=== PATIENT | female | born 1940 | race Caucasian/White ===

== ENCOUNTER 2017-03-18 07:01 | Inpatient (IN) ==
[2017-03-18] MEDS ORDERED: ONDANSETRON ODT 4 MG TABLET PO STA (07:25)
--- NOTE | 2017-03-18 07:28 | Emergency Department Note ---
Trace De La Fuente Brittany, am scribing for, and in the presence of, Matt Lipscomb MD 07:16. Deisi De La Fuente James D, MD, personally performed the services described in this documentation, ascribed by Mei Woodward in my presence, and it is both accurate and complete 727 . Arrival - Arrival Chief Complaint: Upper Respiratory Stated Complaint: trouble breathing/cough,congestion ED Nursing Triage Note: c/o coughing, congestion, wheezing, and weakness. Patient was seen last week at the doctors office and has been treated for pneumonia. Patient states she just don't feel any better. Mode of Arrival: Ambulatory Limitations: Language Barrier (patient does not speak azeri, history is provided by her daughter) Source: Family, RN Notes Reviewed - History of Present Illness HPI Narrative: Patient is a 76 y/o female presenting to the ED with c/o cough, congestion, wheezing, and weakness that began a week and a half ago. History is obtained from family secondary to patient being a non-Ukrainian speaker. Family reports that she was seen by her primary care provider Dr. Peña last week and was diagnosed and treated for Pneumonia with Rocephin shot and abx. PMHx of CHF, HTN , and DM. Proof Carrier is Dr. Servin. PCP is Dr. Peña. No fevers, did have some chest pain, but attributed to excessive coughing. Has had some abdominal pain described as as burning sensation. No further complaints. Onset (ago): week(s) (1 week and a half) Consistency: constant Allergies/Adverse Reactions: Allergies Allergy/AdvReac Type Severity Reaction Status Date / Time Sulfa (Sulfonamide Allergy Severe HIVES Verified 03/18/17 07:11 Antibiotics) Home Medications: Home Medications Medication Instructions Recorded Confirmed Type Albuterol Sulfate [Proair HFA] 90 mcg INH DIRECTED PRN 02/23/17 02/23/17 History Carvedilol [Coreg] 12.5 mg PO BID 02/23/17 02/23/17 History Fluticasone/Salmeterol [Advair Hfa 12 gm INH DAILY 02/23/17 02/23/17 History 115-21 Mcg Inhaler] Insulin Glargine,Hum.rec.anlog 35 units SUBCUT BEDTIME 02/23/17 02/23/17 History [Lantus SoloStar] Levothyroxine Tab [Synthroid Tab] 75 mcg PO DAILY 02/23/17 02/23/17 History Lovastatin [Altoprev] 40 mg PO DAILY 02/23/17 02/23/17 History Montelukast Tab [Singulair Tab] 10 mg PO DAILY 02/23/17 02/23/17 History Nitroglycerin [Nitroglycerin SL 0.3 mg PO DIRECTED PRN 02/23/17 02/23/17 History Tab] Sitagliptin Phos/Metformin HCl 1 tablet PO DAILY 02/23/17 02/23/17 History [Janumet Xr 100-1,000 mg Tablet] amLODIPine [Norvasc] 10 mg PO DAILY 02/23/17 02/23/17 History glipiZIDE [Glipizide] 10 mg PO DAILY 02/23/17 02/23/17 History hydrOXYzine HCl [Hydroxyzine HCl] 25 mg PO DIRECTED 02/23/17 02/23/17 History Review of System - Review of System 12 point system: reviewed and no additional remarkable complaints except as stated - Review of System Constitutional: Present: weakness Respiratory: Present: cough, wheezing, other (congestion) Cardiovascular: Present: chest pain Gastrointestinal: Present: abdominal pain Medical,Surgical,& Family Hx - Medical History Cardio: History of: CAD, Hypertension, [place] (X 2) Psychological: History of: Depression Neurology: No history of: Seizures HEENT: History of: Dental Problems Endocrine: History of: Diabetes Mellitus (IDDM), Diabetes Mellitus (NIDDM), Thyroid Disorder Respiratory: History of: Asthma Genitourinary: History of: Bladder Problem (BLADDER SLING) Musculoskeletal: History of: Back/Neck Problems, Herniated Disk, Osteoporosis - Surgical History Cardiac Surgeries: Sugical HX of: Cardiac Catheterization (STENT) Abdominal Surgeries: Surgical HX of: Abdominal Surgery, Appendectomy Reproductive Surgeries: Surgical HX of;: Gynecologic Surgery (1 OVARY REMOVED), Tubal Ligation - Social History Smoking Status: Never smoker Frequency of Alcohol Use: None Type of Drug Use: None Exam Physical Examination: GENERAL: This is a well-nourished, well-developed female in no apparent distress. VITAL SIGNS: Reviewed. HEENT: Head is normocephalic and atraumatic. Pupils are equally round and reactive to light. Extraocular movement are intact. Oropharynx is benign with moist mucous membranes. NECK: Neck is soft and supple without tenderness. There are no masses. There is no lymphadenopathy. LUNGS: Wheezing throughout bilateral lung howell. Prolonged expiration. Chest rises symmetrically. There is no chest wall tenderness. CV: Heart is regular rate and rhythm without murmurs, rubs, or gallops. ABDOMEN: Abdomen is soft, non-tender to palpation. There are no abnormal masses palpated. There is no organomegaly. Bowel sounds are present and active. SKIN: Skin is warm and dry. No rash. EXTREMITIES: Patient has full range of motion without tenderness. There is no pedal edema. NEUROLOGIC: Awake, alert, and oriented x4. Cranial nerves II through XII are grossly intact. There are no motorsensory deficits. PSYCHIATRIC: Normal affect. Normal mood. Vital Signs: Vital Signs Temperature 98.4 F 03/18/17 07:08 Pulse Rate 74 03/18/17 08:15 Respiratory Rate 16 03/18/17 08:15 Blood Pressure 113/66 03/18/17 08:15 O2 Sat by Pulse Oximetry 100 03/18/17 08:15 Course - Consultations Consultation #1: Discussed with hospitalist. Patient will be admitted to their service Time: 08:58 Results - Labs CBC & BMP: 03/18/17 07:29 03/18/17 07:29 Lab Results: I have reviewed the patients labs Labs: Laboratory Tests 03/18/17 03/18/17 07:29 07:29 Troponin I < 0.015 B-Natriuretic Peptide 28 - EKG EKG results: interpreted by ERMD - Diagnostic Findings Procedure: Chest x-ray: image reviewed by me (Old median sternotomy, no pleural effusions, no cardiomegaly, no infiltrates.) Disposition Clinical Impression: Dyspnea, Acute bronchitis with bronchospasm Case discussed with: patient, patient's family Disposition: Still a Patient
[2017-03-18] MEDS ORDERED: ALBUTEROL 2.5 MG/3 ML NEB RESP TX SCH (07:30)
[2017-03-18] MEDS ORDERED: ONDANSETRON ODT 4 MG TABLET PO ONE (07:33)
[2017-03-18 07:38] LABS: Basophils % 0.5 % (0.0-0.8); Eosinophils # 0.9 10*3/uL (0.0-0.87); Eosinophils % 13.7 % (0.00-10.9); Hematocrit 37.6 VOL% (35.7-47.0); Hemoglobin 13.3 GM/DL (12.0-16.0); Immature Granulocytes % 0.5 %; Immature Granulocytes Absolute 0.03 #; Lymphocytes % 31.1 % (21.3-54.2); Mean Corpuscular HGB Conc 35.4 GM/DL (32-36); Mean Corpuscular Hemoglobin 31 PG (27-34); Mean Corpuscular Volume 86.6 FL (87-102); Mean Platelet Volume 9.7 FL (9.6-12.0); Monocytes # 0.4 10*3/uL (0.11-0.8); Monocytes % 5.9 % (1.7-12.7); Neutrophils # 3.2 10*3/uL (1.4-7.4); Neutrophils % 48.3 % (38.7-73.9); Platelet Count 195 T/CUMM (130-400); Red Blood Count 4.34 MC/CUMM (3.8-5.5); Red Cell Distribution Width 12.9 % (9.3-17.3); White Blood Count 6.6 T/CUMM (4-12)
[2017-03-18 07:46] LABS: PT Patient Result 10.2 SECS; Partial Thromboplastin Time 26.4 SECS (0-40)
--- NOTE | 2017-03-18 07:59 | XRay Report ---
History: Cough Date: 03/18/2017 Study: Chest x-ray PA and lateral Comparison exam: No previous currently available The cardiac silhouette is nonenlarged. The mediastinal contours are unremarkable in this patient status post prior median sternotomy. There is mild aortic arch calcification. The pulmonary vasculature is not engorged. There is no pleural effusion. The lungs are generally clear without confluent infiltrate. There is metallic density stent overlying the left lung apex/thoracic inlet, possibly within the left vertebral artery. There is osteopenia and mild thoracic spondylosis. Impression: No acute cardiopulmonary process PROCEDURE INTERPRETED AT [facility] DEPARTMENT OF RADIOLOGY Final Report Signed by: Dr. Gillian Vegas
[2017-03-18 08:17] LABS: Alanine Aminotransferase 17 U/L (13-56); Albumin 3.9 G/DL (3.4-5.0); Alkaline Phosphatase 71 U/L (45-117); Aspartate Amino Transferase 12 U/L (0-37); Band Neutrophils 9 % (0-10); Bilirubin,Total < 0.39 MG/DL (0.2-1.0); Calcium 9.9 MG/DL (8.5-10.1); Eosinophils 12 % (0-10); Lymphocytes 31 % (20-55); Segmented Neutrophils 44 % (50-85); Total Cells Counted 100; Total Protein 6.8 G/DL (6.4-8.3)
[2017-03-18 08:18] LABS: Blood Urea Nitrogen 15 MG/DL (7-18); Glucose 194 MG/DL (74-106); Osmolality,Calculated 273.2 MOS/KG (273-304); Potassium 4.2 MMOL/L (3.5-5.1); Sodium 134 MMOL/L (136-145); Troponin I Only < 0.015 NG/ML (0.00-0.045)
[2017-03-18 08:59] LABS: Free T4 (Free Thyroxine) 1.37 NG/DL (0.76-1.46); Thyroid Stimulating Hormone 10.8 uIU/ml (0.358-3.74)
[2017-03-18] MEDS ORDERED: ALBUTEROL 2.5 MG/3 ML NEB RESP TX PRN (09:25)
[2017-03-18] MEDS ORDERED: GLUCAGON 1 MG VIAL IM PRN (09:26)
[2017-03-18] MEDS ORDERED: DEXTROSE 50% 25 GM/50 ML VIAL IV PRN (09:26)
[2017-03-18] MEDS ORDERED: INFLUENZA VIRUS VACCINE 0.5 ML SYRINGE IM ONE (10:23)
--- NOTE | 2017-03-18 11:27 | CT Report ---
History: Dyspnea Date: 03/18/2017 Study: CT chest with IV contrast with pulmonary embolus technique Comparison exam: No previous chest CT available Spiral CT sections were obtained through the lungs following the IV administration of 80 mL of Omnipaque 350 without immediate complication. Multiplanar reconstruction images are also evaluated. There is no discrete filling defect within the pulmonary arterial tree to suggest acute pulmonary embolic disease. There is no thoracic aortic aneurysm or dissection. The patient is status post prior median sternotomy. There is moderate coronary artery calcification involving left anterior descending and left main coronary arteries. There is no pleural or pericardial effusion. There is no gaviota lymphadenopathy by short axis diameter criteria. There is a 9.8 mm short axis diameter right paratracheal node. There is an 8 mm partially calcified granuloma in the right upper lobe anteriorly. There is mild strandy subsegmental atelectasis in the lung bases. There is some occasional focal opacification of subsegmental and segmental bronchi in the lower lobes. This could be related to mucous plugging. There is no acute abnormality noted in the partially visualized upper abdomen where seen. Impression: No evidence of acute pulmonary embolic disease Occasional focal opacification of segmental and subsegmental lower lobe bronchi which could represent changes of mucous plugging Mild subsegmental atelectasis in the lung bases Coronary artery disease The CT exam was performed using one or more of the following dose reduction techniques: Automated exposure control, adjustment of the mA and/or kV according to patient size, or use of iterative reconstruction technique. PROCEDURE INTERPRETED AT [facility] DEPARTMENT OF RADIOLOGY Final Report Signed by: Dr. Gillian Vegas
[2017-03-18] MEDS: INSULIN REGULAR 100 UNIT/ML SUBCUT SCH ×3 (11:35→20:47)
[2017-03-18] MEDS: methylPREDNISolone SOD SUC 40 MG/1 ML VIAL IV SCH ×2 (11:35→20:46)
--- NOTE | 2017-03-18 13:20 | Pulmonology Consult Note ---
Assessment and Plan (1) History of coronary artery disease Status: Acute Assessment and plan: The patient has had previous bypass surgery but is not having angina now. She has no signs of heart failure. Current Visit: Yes (2) Diabetes Status: Acute Assessment and plan: Her glucose is 194. Her glucoses will be monitored. Current Visit: Yes (3) Hypertension Status: Acute Assessment and plan: Her blood pressure and heart rate appear under control. Current Visit: Yes (4) Acute bronchitis with bronchospasm Status: Acute Assessment and plan: Patient comes in with asthmatic bronchitis. She is reasonably stable. She should clear with steroids antibiotics and bronchodilator therapy. Current Visit: Yes History of Present Illness Chief complaint: Cough and shortness of breath History of present illness: Ms. Howard is a 76 year old female that came in today with increasing coughing and wheezing. She does not speak Divehi but her family is with her. They say that last week she started having some cough and congestion and went to see her LMD. She was given a Rocephin injection and some ampicillin. She was also given cough medicine. She continues to cough and wheeze and is not cleared up very well. She only has mild shortness of breath. Because she continued to have problems she came in for treatment. She was a very light smoker years ago. There is a question that she may have had some asthma. She does use an albuterol inhaler on an as needed basis. This past week she was using Advair regularly. She has only very minimal shortness of breath. She has had bypass surgery in the past. Home Medications Medication Instructions Recorded Confirmed Type Albuterol Sulfate [Proair HFA] 2 puffs INH Q4H PRN 02/23/17 03/18/17 History Carvedilol [Coreg] 12.5 mg PO BID 02/23/17 03/18/17 History Fluticasone/Salmeterol [Advair Hfa 1 puff INH BID 02/23/17 03/18/17 History 115-21 Mcg Inhaler] Insulin Glargine,Hum.rec.anlog 28 units SUBCUT QAM 02/23/17 03/18/17 History [Lantus SoloStar] Levothyroxine Tab [Synthroid Tab] 75 mcg PO DAILY@0500 02/23/17 03/18/17 History Lovastatin [Altoprev] 40 mg PO DAILY W/SUPPER 02/23/17 03/18/17 History Montelukast Tab [Singulair Tab] 10 mg PO BEDTIME 02/23/17 03/18/17 History Sitagliptin Phos/Metformin HCl 1 tablet PO BEDTIME 02/23/17 03/18/17 History [Janumet Xr 100-1,000 mg Tablet] amLODIPine [Norvasc] 10 mg PO QAM 02/23/17 03/18/17 History glipiZIDE [Glipizide] 10 mg PO BIDAC 02/23/17 03/18/17 History hydrOXYzine HCl [Hydroxyzine HCl] 25 mg PO BEDTIME PRN 02/23/17 03/18/17 History Albuterol Sulfate [Albuterol Neb] 3 ml INH Q6H PRN 03/18/17 03/18/17 History Amoxicillin/Potassium Clav [Amox 1 each PO BID 03/18/17 03/18/17 History Tr-K Clv 500-125 mg Tab] Aspirin EC Tab 81 mg PO BEDTIME 03/18/17 03/18/17 History Isosorbide Dinitrate [Isordil] 20 mg PO BID 03/18/17 03/18/17 History Losartan [Cozaar] 50 mg PO QAM 03/18/17 03/18/17 History Nitroglycerin Sl Tab [Nitrostat] 0.4 mg SL Q5M PRN 03/18/17 03/18/17 History Promethazine HCl/Codeine 5 ml PO Q12H PRN 03/18/17 03/18/17 History [Promethazine-Codeine Syrup] Allergies Allergy/AdvReac Type Severity Reaction Status Date / Time Sulfa (Sulfonamide Allergy Severe HIVES Verified 03/18/17 07:11 Antibiotics) - Constitutional Constitutional: Present: fatigue. Absent: chills, fever(s), weight loss - EENT Eyes: Absent: loss of vision Ears: Absent: decreased hearing Nose, mouth and throat: Absent: dysphagia, headache(s), hoarseness, sinus pressure - Cardiovascular Cardiovascular: Present: chest pain at rest, dyspnea on exertion. Absent: edema , orthopnea, palpitations - Respiratory Respiratory: Present: cough, wheezing, change in phlegm color. Absent: hemoptysis - Gastrointestinal Gastrointestinal: Absent: abdominal pain, change in bowel habits, dysphagia, nausea, vomiting - Genitourinary Genitourinary: Absent: dysuria, hematuria, urinary frequency - Musculoskeletal Musculoskeletal: Absent: arthralgias, myalgias - Neurological Neurological: Absent: abnormal speech, focal weakness, paresthesias - Psychiatric Psychiatric: Absent: anxiety Exam (Pulmonay) H&P - Constitutional Vitals: Period Temp Pulse Resp BP Sys/Schaffer Pulse Ox Last 24 Hr 96.5 F-98.4 F 61-80 15-22 113-184/57-99 95-100 General appearance: normal weight, no acute distress (Patient does have a harsh cough but she is in no distress.) - Head Head exam: Present: normal inspection, normocephalic - Eye Eye exam: Present: EOMI. Absent: scleral icterus Pupils: Present: EVELINE - ENT ENT exam: Present: other (No sinus tenderness) - Neck Neck exam: Absent: lymphadenopathy, thyromegaly - Respiratory Respiratory exam: Present: rhonchi, wheezes. Absent: accessory muscle use, prolonged expiratory phase - Cardiovascular Cardiovascular exam: Present: regular rate and rhythm. Absent: gallop, JVD, systolic murmur - GI/Abdominal GI/Abdominal exam: Present: normal bowel sounds, soft. Absent: distended, organomegaly, tenderness - Extremities Exam Extremities exam: Absent: calf tenderness, edema - Neurological Exam Neurological exam: Present: alert, oriented X3, CN II-XII intact - Psychiatric Psychiatric exam: Present: normal affect, normal mood - Skin Skin exam: Present: warm, dry Medical,Surgical,& Family Hx - Medical History Cardio: History of: CAD, Hypertension, [place] (X 2) Psychological: History of: Depression Neurology: No history of: Seizures HEENT: History of: Dental Problems Endocrine: History of: Diabetes Mellitus (IDDM), Diabetes Mellitus (NIDDM), Thyroid Disorder Respiratory: History of: Asthma Genitourinary: History of: Bladder Problem (BLADDER SLING) Musculoskeletal: History of: Back/Neck Problems, Herniated Disk, Osteoporosis - Surgical History Cardiac Surgeries: Sugical HX of: Cardiac Catheterization (STENT), Cardiac Surgery (She has had bypass surgery) Abdominal Surgeries: Surgical HX of: Abdominal Surgery, Appendectomy Reproductive Surgeries: Surgical HX of;: Gynecologic Surgery (1 OVARY REMOVED), Tubal Ligation - Social History Smoking Status: Former smoker Frequency of Alcohol Use: None Type of Drug Use: None Results - Labs CBC & BMP: 03/18/17 07:29 03/18/17 07:29 - Diagnostic Findings Procedure: Chest x-ray: image reviewed by me, report reviewed by me (Chest x- ray looks unremarkable), CT - chest: image reviewed by me, report reviewed by me (She has minimal infiltrates in the bases.) Specialty Discharge - Follow Up or Referrals
--- NOTE | 2017-03-18 13:40 | Hospitalist History & Physical ---
Assessment and Plan (1) Acute bronchitis with bronchospasm Status: Acute Assessment and plan: The patient had audible wheezes upon auscultation at the time of presentation. Prolonged inhaled bronchodilator treatments were given in the ED. We will initiate empiric antibiotic coverage, inhaled bronchodilators, and intravenous corticosteroids. Due to the severity of the patient's presenting symptoms, a pulmonary consultation has been requested. Current Visit: Yes (2) Diabetes Status: Acute Assessment and plan: Hemoglobin A1c was noted at 8.6. We will place all oral hypoglycemic agents on hold and start Accu-Cheks with sliding scale coverage. Current Visit: Yes (3) History of coronary artery disease Status: Acute Assessment and plan: Cardiology consultation has been requested. Current Visit: Yes History of Present Illness Chief complaint: Shortness of breath History of present illness: This is a chronically ill 76-year-old female that presented to the ED at [facility] this morning for the evaluation of shortness of breath. Patient has a medical history significant for congestive heart failure, hypertension, diabetes mellitus, chronic obstructive pulmonary disease , myocardial infarction, depression, hypothyroidism, asthma, osteoporosis, and chronic neck and back pain. Patient has a surgical history significant for cardiac catheterization with stent placement, appendectomy, partial hysterectomy , and tubal ligation. The patient reported the onset of symptoms 1-1/2 weeks prior to presentation. Her daughter who was present at bedside service historian. She reported that the patient had a gradual onset of shortness of breath and cold-like symptoms. She presented to her primary care physician Dr. Murguia on last week. During that clinical encounter, the patient was diagnosed with pneumonia, given a Rocephin injection, and sent home on oral antibiotics. The daughter reports that the patient's symptoms fail to improve despite medical intervention. Her symptoms became severe on this morning prompting her to transport her to the ED at [facility] for further evaluation. The patient was assessed at the time of ED presentation. Labs were obtained which were significant for sodium 134, glucose 104, hemoglobin A1c 8.6, and TSH 10.800. Chest x-ray was essentially unremarkable for any acute cardiopulmonary process. CT chest was negative for any evidence of acute pulmonary embolic disease. After brief discussion with both Dr. Lipscomb and Dr. Zepeda, the patient will be admitted to the hospitalist service for continuation of care. Due to the severity of the patient's presenting symptoms a cardiology and pulmonary consultations have been requested. Home medications have been reviewed and reconciled. CODE STATUS discussed; patient is a FULL CODE. Home Medications Medication Instructions Recorded Confirmed Type Albuterol Sulfate [Proair HFA] 2 puffs INH Q4H PRN 02/23/17 03/18/17 History Carvedilol [Coreg] 12.5 mg PO BID 02/23/17 03/18/17 History Fluticasone/Salmeterol [Advair Hfa 1 puff INH BID 02/23/17 03/18/17 History 115-21 Mcg Inhaler] Insulin Glargine,Hum.rec.anlog 28 units SUBCUT QAM 02/23/17 03/18/17 History [Lantus SoloStar] Levothyroxine Tab [Synthroid Tab] 75 mcg PO DAILY@0500 02/23/17 03/18/17 History Lovastatin [Altoprev] 40 mg PO DAILY W/SUPPER 02/23/17 03/18/17 History Montelukast Tab [Singulair Tab] 10 mg PO BEDTIME 02/23/17 03/18/17 History Sitagliptin Phos/Metformin HCl 1 tablet PO BEDTIME 02/23/17 03/18/17 History [Janumet Xr 100-1,000 mg Tablet] amLODIPine [Norvasc] 10 mg PO QAM 02/23/17 03/18/17 History glipiZIDE [Glipizide] 10 mg PO BIDAC 02/23/17 03/18/17 History hydrOXYzine HCl [Hydroxyzine HCl] 25 mg PO BEDTIME PRN 02/23/17 03/18/17 History Albuterol Sulfate [Albuterol Neb] 3 ml INH Q6H PRN 03/18/17 03/18/17 History Amoxicillin/Potassium Clav [Amox 1 each PO BID 03/18/17 03/18/17 History Tr-K Clv 500-125 mg Tab] Aspirin EC Tab 81 mg PO BEDTIME 03/18/17 03/18/17 History Isosorbide Dinitrate [Isordil] 20 mg PO BID 03/18/17 03/18/17 History Losartan [Cozaar] 50 mg PO QAM 03/18/17 03/18/17 History Nitroglycerin Sl Tab [Nitrostat] 0.4 mg SL Q5M PRN 03/18/17 03/18/17 History Promethazine HCl/Codeine 5 ml PO Q12H PRN 03/18/17 03/18/17 History [Promethazine-Codeine Syrup] Allergies Allergy/AdvReac Type Severity Reaction Status Date / Time Sulfa (Sulfonamide Allergy Severe HIVES Verified 03/18/17 07:11 Antibiotics) Medical,Surgical,& Family Hx - Medical History Cardio: History of: CAD, Hypertension, [place] (X 2) Psychological: History of: Depression Neurology: No history of: Seizures HEENT: History of: Dental Problems Endocrine: History of: Diabetes Mellitus (IDDM), Diabetes Mellitus (NIDDM), Thyroid Disorder Respiratory: History of: Asthma Genitourinary: History of: Bladder Problem (BLADDER SLING) Musculoskeletal: History of: Back/Neck Problems, Herniated Disk, Osteoporosis - Surgical History Cardiac Surgeries: Sugical HX of: Cardiac Catheterization (STENT), Cardiac Surgery (She has had bypass surgery) Abdominal Surgeries: Surgical HX of: Abdominal Surgery, Appendectomy Reproductive Surgeries: Surgical HX of;: Gynecologic Surgery (1 OVARY REMOVED), Tubal Ligation - Family History Family History: Reports;: Family Cancer, Family Diabetes, Family Heart Disease, Family Hypertension - Social History Smoking Status: Former smoker Have you smoked in the last 12 months: No Frequency of Alcohol Use: None Type of Drug Use: None Marital Status: Lives With:: Children Functional capacity: uses cane/walker 12 point system: reviewed and no additional remarkable complaints except as stated Exam - Constitutional Vitals: Period Temp Pulse Resp BP Sys/Schaffer Pulse Ox Last 24 Hr 96.5 F-98.4 F 61-80 15-22 113-184/57-99 95-100 General appearance: normal weight, mild distress - Head Head exam: Present: normal inspection, normocephalic, atraumatic - Eye Eye exam: Present: EOMI. Absent: conjunctival injection Pupils: Present: EVELINE, normal accommodation - ENT ENT exam: Present: normal exam, normal external ear exam, normal oropharynx - Neck Neck exam: Present: normal inspection. Absent: lymphadenopathy, meningismus, thyromegaly - Respiratory Respiratory exam: Present: wheezes - Cardiovascular Cardiovascular exam: Present: regular rate and rhythm. Absent: carotid bruit, diastolic murmur, gallop, rubs, systolic murmur - GI/Abdominal GI/Abdominal exam: Present: normal bowel sounds, soft - Extremities Exam Extremities exam: Present: normal inspection, normal capillary refill, full ROM. Absent: edema - Back Exam Back exam: Present: normal inspection - Neurological Exam Neurological exam: Present: alert, oriented X3, CN II-XII intact - Psychiatric Psychiatric exam: Present: normal affect, normal mood - Skin Skin exam: Present: normal color, warm, dry Results - Labs CBC & BMP: 03/18/17 07:29 03/18/17 07:29 Lab Results: I have reviewed the past 24 hour labs
[2017-03-18] MEDS: DOXYCYCLINE HYCLATE INJ 100 MG in SODIUM CHLORIDE 0.9% 100 ML IV SCH (14:29)
[2017-03-18] MEDS: ALBUTEROL/IPRATROPIUM 3 ML NEB RESP TX SCH ×2 (14:31→20:00)
--- NOTE | 2017-03-18 16:39 | Cardiology Consult Note ---
<Margaret Lopez E - Last Filed: 03/18/17 16:37> Assessment and Plan - Time spent with patient Time spent with patient: Greater than 30 minutes (1) Dyslipidemia Status: Chronic Assessment and plan: SEE PLAN OF CARE LISTED BELOW Current Visit: Yes (2) PVD (peripheral vascular disease) Status: Chronic Assessment and plan: SEE PLAN OF CARE LISTED BELOW Current Visit: Yes (3) COPD (chronic obstructive pulmonary disease) Status: Chronic Assessment and plan: SEE PLAN OF CARE LISTED BELOW Current Visit: Yes (4) Dyspnea Status: Acute Assessment and plan: SEE PLAN OF CARE LISTED BELOW Current Visit: Yes (5) Acute bronchitis with bronchospasm Status: Acute Assessment and plan: SEE PLAN OF CARE LISTED BELOW Current Visit: Yes (6) History of coronary artery disease Status: Chronic Assessment and plan: SEE PLAN OF CARE LISTED BELOW Current Visit: Yes (7) Diabetes Status: Chronic Assessment and plan: SEE PLAN OF CARE LISTED BELOW Current Visit: Yes (8) Hypertension Status: Chronic Assessment and plan: SEE PLAN OF CARE LISTED BELOW Current Visit: Yes History of Present Illness - Data of Consult Patient: known to practice within the last 3 years Consult date: 03/18/17 Requesting Physician: Nereida Zepeda - Consult Narrative Reason for consult: Shortness of breath, known CAD History of present illness: [employer] HE[employer] SANITARIAN: DR. SERVIN Ms. Howard, 76HF, with risk factors significant for: Known CAD (status post CABG twice), hypertension, dyslipidemia, diabetes, PVD, sedentary lifestyle and age. Patient has a history of 2 vessel CABG 1995 in [place] followed by PCI with 2 stents in [place], [place] in 1998. 2008 in [facility] emergent 2 vessel CABG. She has HUNTER to LAD, SVG to right PDA. The second surgery was a redo of the same vessels. Patient has required PCI and stenting of her bilateral lower extremities in the past. Myocardial perfusion study December 20, 2016: Abnormal perfusion study consistent with prior infarction. (See report). Results were discussed with patient in clinic. Echocardiogram December: EF 50%, grade 1 diastolic dysfunction, moderate concentric LVH. Mild mitral regurgitation, mild to moderate tricuspid regurgitation, PAP 32 mmHg. Admitted March 18, 2017 with complaints of worsening cough, wheezing and shortness of breath. She has history of COPD, asthma. She failed outpatient treatment with antibiotics. Because of her worsening symptoms, she felt as if she should be evaluated in the emergency department. [place] and treated with antibiotics, steroids and bronchodilators. Coreg was discontinued due to wheezing and switched to Bystolic. She just completed a respiratory treatment and is breathing much better at this time. She denies chest pain, heaviness or tightness. Overall, patient reports she is fairly active and can perform her activities without complaints of angina. She is not in congestive heart failure (proBNP 28). Troponin is negative. CT chest reveals possible mucous plugging. From a cardiac standpoint, she appears to be doing well. Agree with changing of Coreg to Bystolic to see if this will improve her wheezing. Blood pressure appears to be well controlled, she is in a normal sinus rhythm. From a cardiac standpoint, we will sign off. She will keep her current follow-up appointment. IMPRESSION/PLAN: 1. SHORTNESS OF BREATH -multifactorial to include COPD exacerbation, upper respiratory infection, bronchitis. She IS NOT in congestive heart failure. Continue aggressive pulmonary toilet. 2. KNOWN CAD - complaints of angina at this time. Will add aspirin and Lovenox. 3. HYPERTENSION - adequately controlled. 4. DYSLIPIDEMIA - continue lipid-lowering agent 5. PVD - adding Aspirin. CC: Nereida Zepeda MD - Home Medications and Allergies Home Medications: Home Medications Medication Instructions Recorded Confirmed Type Albuterol Sulfate [Proair HFA] 2 puffs INH Q4H PRN 02/23/17 03/18/17 History Carvedilol [Coreg] 12.5 mg PO BID 02/23/17 03/18/17 History Fluticasone/Salmeterol [Advair Hfa 1 puff INH BID 02/23/17 03/18/17 History 115-21 Mcg Inhaler] Insulin Glargine,Hum.rec.anlog 28 units SUBCUT QAM 02/23/17 03/18/17 History [Lantus SoloStar] Levothyroxine Tab [Synthroid Tab] 75 mcg PO DAILY@0500 02/23/17 03/18/17 History Lovastatin [Altoprev] 40 mg PO DAILY W/SUPPER 02/23/17 03/18/17 History Montelukast Tab [Singulair Tab] 10 mg PO BEDTIME 02/23/17 03/18/17 History Sitagliptin Phos/Metformin HCl 1 tablet PO BEDTIME 02/23/17 03/18/17 History [Janumet Xr 100-1,000 mg Tablet] amLODIPine [Norvasc] 10 mg PO QAM 02/23/17 03/18/17 History glipiZIDE [Glipizide] 10 mg PO BIDAC 02/23/17 03/18/17 History hydrOXYzine HCl [Hydroxyzine HCl] 25 mg PO BEDTIME PRN 02/23/17 03/18/17 History Albuterol Sulfate [Albuterol Neb] 3 ml INH Q6H PRN 03/18/17 03/18/17 History Amoxicillin/Potassium Clav [Amox 1 each PO BID 03/18/17 03/18/17 History Tr-K Clv 500-125 mg Tab] Aspirin EC Tab 81 mg PO BEDTIME 03/18/17 03/18/17 History Isosorbide Dinitrate [Isordil] 20 mg PO BID 03/18/17 03/18/17 History Losartan [Cozaar] 50 mg PO QAM 03/18/17 03/18/17 History Nitroglycerin Sl Tab [Nitrostat] 0.4 mg SL Q5M PRN 03/18/17 03/18/17 History Promethazine HCl/Codeine 5 ml PO Q12H PRN 03/18/17 03/18/17 History [Promethazine-Codeine Syrup] Allergies/Adverse Reactions: Allergies Allergy/AdvReac Type Severity Reaction Status Date / Time Sulfa (Sulfonamide Allergy Severe HIVES Verified 03/18/17 07:11 Antibiotics) Review of systems: REVIEW OF SYSTEMS: - Constitutional Constitutional: Present: Fatigue. Absent: syncope, anorexia, night sweats - EENT Eyes: Absent: blurry vision, loss of vision, diplopia Ears: Absent: decreased hearing, ear pain, ear discharge - Cardiovascular Cardiovascular: Denies: chest pain with exertion. Denies edema, palpitations. Absent: chest pain with deep breath, claudication - Respiratory Respiratory: Present: MARSH, cough. Wheezing. Absent: hemoptysis, change in phlegm color - Gastrointestinal Gastrointestinal: Present: constipation. Absent: abdominal pain, hematemesis , hematochezia, melena, change in bowel habits, nausea - Genitourinary Genitourinary: Absent: difficulty urinating, dysuria, urinary hesitancy, flank pain - Musculoskeletal Musculoskeletal: Present: back pain Absent: joint swelling, muscle cramps, muscle weakness - Neurological Neurological: Present: normal gait without frequent falls. Absent: dizziness, hemiparesis - Psychiatric Psychiatric: Absent: anxiety, depression, difficulty concentrating - Endocrine Endocrine: Present: fatigue. Absent: cold intolerance, heat intolerance, polyuria, polyphagia, polydipsia - Hematologic/Lymphatic Hematologic/Lymphatic: Present: easy bruising. Absent: easy bleeding -Integumentary Integumentary: Absent: lesions, rashes, skin breakdown Medical,Surgical,& Family Hx - Medical History Cardio: History of: CAD, Hypertension, CO (X 2) Psychological: History of: Depression Neurology: No history of: Seizures HEENT: History of: Dental Problems Endocrine: History of: Diabetes Mellitus (IDDM), Diabetes Mellitus (NIDDM), Thyroid Disorder Respiratory: History of: Asthma Genitourinary: History of: Bladder Problem (BLADDER SLING) Musculoskeletal: History of: Back/Neck Problems, Herniated Disk, Osteoporosis - Surgical History Cardiac Surgeries: Sugical HX of: Cardiac Catheterization (STENT), Cardiac Surgery (She has had bypass surgery) Abdominal Surgeries: Surgical HX of: Abdominal Surgery, Appendectomy Reproductive Surgeries: Surgical HX of;: Gynecologic Surgery (1 OVARY REMOVED), Tubal Ligation - Family History Family History: Reports;: Family Cancer, Family Diabetes, Family Heart Disease, Family Hypertension - Social History Smoking Status: Former smoker Have you smoked in the last 12 months: No Frequency of Alcohol Use: None Type of Drug Use: None Marital Status: Lives With:: Children Functional capacity: independent ambulation Physical Examination Vital Signs Temp Pulse Resp BP Pulse Ox 98.4 F 75 22 132/75 96 03/18/17 07:08 03/18/17 07:08 03/18/17 07:08 03/18/17 07:08 03/18/17 07:08 Exam: General: [Appears well with no apparent distress.] [Pleasant and cooperative. ] [Appears comfortable.] HEENT: [PERRL, normocephalic, atraumatic. Mucous membranes moist. No jaundice noted. Conjunctiva moist and clear, sclerae anicteric] Neck: No JVD/HJR, no thyromegaly or lymphadenopathy noted. No carotid bruit appreciated Cardiac: [Regular rate and rhythm.] [No murmur rub or gallop.] Lungs: [End expiratory wheezes noted anteriorly. No rales ] Oxygen in use via nasal cannula Abdomen: Soft, bowel sounds normoactive. Nontender and nondistended. No abdominal bruit or thrill noted. No masses noted. Musculoskeletal: No fluid collection. Decreased range of motion is noted. Extremities: No clubbing, cyanosis noted. [ No edema noted.] Upper extremity pulses 2+. Lower extremity pulses 1+. Capillary refill less than 3 seconds. Skin: No unusual lesions or rashes. No skin breakdown appreciated. Neuro: Awake, alert and oriented 3. Moves all extremities well without hemiparesis or paralysis. No essential tremor is appreciated. Result/EKG - Labs CBC & BMP: 03/18/17 07:29 03/18/17 07:29 Lab Results: I have reviewed the past 24 hour labs Labs: Laboratory Results - last 24 hr 03/18/17 03/18/17 03/18/17 07:26 07:29 07:29 WBC 6.6 RBC 4.34 Hgb 13.3 Hct 37.6 MCV 86.6 L MCH 31 MCHC 35.4 RDW 12.9 Plt Count 195 MPV 9.7 Neut % (Auto) 48.3 Lymph % (Auto) 31.1 Blanco % (Auto) 5.9 Eos % (Auto) 13.7 H Baso % (Auto) 0.5 Neut # (Auto) 3.2 Lymph # (Auto) 2.0 Blanco # (Auto) 0.4 Eos # (Auto) 0.9 H Baso # (Auto) 0.0 Total Counted 100 Immature Gran % 0.5 Nucleated RBC % 0.0 Immature Gran # 0.03 Segmented Neutrophils 44 L Band Neutrophils 9 Lymphocytes 31 Monocytes 4 Eosinophils 12 H Nucleated RBCs # 0.00 Immature Plt Fraction 0.0 INR 1.0 PT Patient/Control Mix 10.2 Circ Anticoag PTT 26.4 Sodium Potassium Chloride Carbon Dioxide Anion Gap BUN Creatinine GFR Calculation BUN/Creatinine Ratio Glucose POC Glucose Hemoglobin A1c Calculated Osmolality Calcium Total Bilirubin AST ALT Alkaline Phosphatase Troponin I B-Natriuretic Peptide Total Protein Albumin Globulin Albumin/Globulin Ratio Free T4 1.37 TSH 3rd Generation 10.800 H 03/18/17 03/18/17 03/18/17 07:29 07:29 10:26 WBC RBC Hgb Hct MCV MCH MCHC RDW Plt Count MPV Neut % (Auto) Lymph % (Auto) Blanco % (Auto) Eos % (Auto) Baso % (Auto) Neut # (Auto) Lymph # (Auto) Blanco # (Auto) Eos # (Auto) Baso # (Auto) Total Counted Immature Gran % Nucleated RBC % Immature Gran # Segmented Neutrophils Band Neutrophils Lymphocytes Monocytes Eosinophils Nucleated RBCs # Immature Plt Fraction INR PT Patient/Control Mix Circ Anticoag PTT Sodium 134 L Potassium 4.2 Chloride 100 Carbon Dioxide 27 Anion Gap 11.2 BUN 15 Creatinine 0.80 GFR Calculation 64 BUN/Creatinine Ratio 18.00 Glucose 194 H POC Glucose 161 H Hemoglobin A1c Calculated Osmolality 273.2 Calcium 9.9 Total Bilirubin < 0.39 AST 12 ALT 17 Alkaline Phosphatase 71 Troponin I < 0.015 B-Natriuretic Peptide 28 Total Protein 6.8 Albumin 3.9 Globulin 2.9 Albumin/Globulin Ratio 1.3 Free T4 TSH 3rd Generation 03/18/17 03/18/17 12:36 16:29 WBC RBC Hgb Hct MCV MCH MCHC RDW Plt Count MPV Neut % (Auto) Lymph % (Auto) Blanco % (Auto) Eos % (Auto) Baso % (Auto) Neut # (Auto) Lymph # (Auto) Blanco # (Auto) Eos # (Auto) Baso # (Auto) Total Counted Immature Gran % Nucleated RBC % Immature Gran # Segmented Neutrophils Band Neutrophils Lymphocytes Monocytes Eosinophils Nucleated RBCs # Immature Plt Fraction INR PT Patient/Control Mix Circ Anticoag PTT Sodium Potassium Chloride Carbon Dioxide Anion Gap BUN Creatinine GFR Calculation BUN/Creatinine Ratio Glucose POC Glucose 301 H Hemoglobin A1c 8.6 H Calculated Osmolality Calcium Total Bilirubin AST ALT Alkaline Phosphatase Troponin I B-Natriuretic Peptide Total Protein Albumin Globulin Albumin/Globulin Ratio Free T4 TSH 3rd Generation - Diagnostic Findings Procedure: Chest x-ray: report reviewed by me, CT - chest: report reviewed by me - EKG EKG results: interpreted by me EKG shows: sinus rhythm Specialty Discharge - Follow Up or Referrals <Shari Servin - Last Filed: 03/18/17 19:20> History of Present Illness - Consult Narrative History of present illness: I have personally interviewed and evaluated the patient, reviewed the chart and discussed medical decision-making with Practitioner Jessica. I have read this note and agree with her documentation here in. The patient seems to be stable from a cardiac standpoint, and her presentation seems more consistent with a pulmonary issue. I agree with the current medication changes. CC: Nereida Zepeda MD Physical Examination Vital Signs Temp Pulse Resp BP Pulse Ox 98.4 F 75 22 132/75 96 03/18/17 07:08 03/18/17 07:08 03/18/17 07:08 03/18/17 07:08 03/18/17 07:08 Result/EKG - Labs CBC & BMP: 03/18/17 07:29 03/18/17 07:29 Labs: Laboratory Results - last 24 hr 03/18/17 03/18/17 03/18/17 07:26 07:29 07:29 WBC 6.6 RBC 4.34 Hgb 13.3 Hct 37.6 MCV 86.6 L MCH 31 MCHC 35.4 RDW 12.9 Plt Count 195 MPV 9.7 Neut % (Auto) 48.3 Lymph % (Auto) 31.1 Blanco % (Auto) 5.9 Eos % (Auto) 13.7 H Baso % (Auto) 0.5 Neut # (Auto) 3.2 Lymph # (Auto) 2.0 Blanco # (Auto) 0.4 Eos # (Auto) 0.9 H Baso # (Auto) 0.0 Total Counted 100 Immature Gran % 0.5 Nucleated RBC % 0.0 Immature Gran # 0.03 Segmented Neutrophils 44 L Band Neutrophils 9 Lymphocytes 31 Monocytes 4 Eosinophils 12 H Nucleated RBCs # 0.00 Immature Plt Fraction 0.0 INR 1.0 PT Patient/Control Mix 10.2 Circ Anticoag PTT 26.4 Sodium Potassium Chloride Carbon Dioxide Anion Gap BUN Creatinine GFR Calculation BUN/Creatinine Ratio Glucose POC Glucose Hemoglobin A1c Calculated Osmolality Calcium Total Bilirubin AST ALT Alkaline Phosphatase Troponin I B-Natriuretic Peptide Total Protein Albumin Globulin Albumin/Globulin Ratio Free T4 1.37 TSH 3rd Generation 10.800 H 03/18/17 03/18/17 03/18/17 07:29 07:29 10:26 WBC RBC Hgb Hct MCV MCH MCHC RDW Plt Count MPV Neut % (Auto) Lymph % (Auto) Blanco % (Auto) Eos % (Auto) Baso % (Auto) Neut # (Auto) Lymph # (Auto) Blanco # (Auto) Eos # (Auto) Baso # (Auto) Total Counted Immature Gran % Nucleated RBC % Immature Gran # Segmented Neutrophils Band Neutrophils Lymphocytes Monocytes Eosinophils Nucleated RBCs # Immature Plt Fraction INR PT Patient/Control Mix Circ Anticoag PTT Sodium 134 L Potassium 4.2 Chloride 100 Carbon Dioxide 27 Anion Gap 11.2 BUN 15 Creatinine 0.80 GFR Calculation 64 BUN/Creatinine Ratio 18.00 Glucose 194 H POC Glucose 161 H Hemoglobin A1c Calculated Osmolality 273.2 Calcium 9.9 Total Bilirubin < 0.39 AST 12 ALT 17 Alkaline Phosphatase 71 Troponin I < 0.015 B-Natriuretic Peptide 28 Total Protein 6.8 Albumin 3.9 Globulin 2.9 Albumin/Globulin Ratio 1.3 Free T4 TSH 3rd Generation 03/18/17 03/18/17 12:36 16:29 WBC RBC Hgb Hct MCV MCH MCHC RDW Plt Count MPV Neut % (Auto) Lymph % (Auto) Blanco % (Auto) Eos % (Auto) Baso % (Auto) Neut # (Auto) Lymph # (Auto) Blanco # (Auto) Eos # (Auto) Baso # (Auto) Total Counted Immature Gran % Nucleated RBC % Immature Gran # Segmented Neutrophils Band Neutrophils Lymphocytes Monocytes Eosinophils Nucleated RBCs # Immature Plt Fraction INR PT Patient/Control Mix Circ Anticoag PTT Sodium Potassium Chloride Carbon Dioxide Anion Gap BUN Creatinine GFR Calculation BUN/Creatinine Ratio Glucose POC Glucose 301 H Hemoglobin A1c 8.6 H Calculated Osmolality Calcium Total Bilirubin AST ALT Alkaline Phosphatase Troponin I B-Natriuretic Peptide Total Protein Albumin Globulin Albumin/Globulin Ratio Free T4 TSH 3rd Generation
[2017-03-18] MEDS ORDERED: ASPIRIN EC 81 MG TABLET PO SCH (17:06)
[2017-03-18] MEDS: ENOXAPARIN 40 MG/0.4 ML SYRINGE SUBCUT SCH (20:46)
[2017-03-18] MEDS: ASPIRIN EC 81 MG TABLET PO SCH (20:47)
[2017-03-18] MEDS ORDERED: CARVEDILOL 12.5 MG TABLET PO SCH (21:00)
[2017-03-19] MEDS: ALBUTEROL/IPRATROPIUM 3 ML NEB RESP TX SCH ×4 (00:32→20:06)
[2017-03-19] MEDS: DOXYCYCLINE HYCLATE INJ 100 MG in SODIUM CHLORIDE 0.9% 100 ML IV SCH ×2 (01:03→14:20)
[2017-03-19] MEDS ORDERED: tiZANidine 4 MG TABLET PO PRN (01:14)
[2017-03-19] MEDS ORDERED: IBUPROFEN 800 MG TABLET PO PRN (01:16)
[2017-03-19] MEDS: methylPREDNISolone SOD SUC 40 MG/1 ML VIAL IV SCH ×3 (02:31→21:49)
--- NOTE | 2017-03-19 07:24 | Hospitalist Progress Note ---
Assessment and Plan (1) Acute bronchitis with bronchospasm Status: Acute Assessment and plan: The patient had audible wheezes upon auscultation at the time of presentation. Prolonged inhaled bronchodilator treatments were given in the ED. We will initiate empiric antibiotic coverage, inhaled bronchodilators, and intravenous corticosteroids. Due to the severity of the patient's presenting symptoms, a pulmonary consultation has been requested. 03/18-evaluated by pulmonology on yesterday. We appreciate the input. We will continue intravenous corticosteroids, empiric antibiotics, and inhaled bronchodilators as previously ordered. Current Visit: Yes (2) Diabetes Status: Chronic Assessment and plan: Hemoglobin A1c was noted at 8.6. We will place all oral hypoglycemic agents on hold and start Accu-Cheks with sliding scale coverage. 03/18-we will continue Accu-Cheks sliding scale coverage; we will resume Lantus 28 units every morning per home dose. Current Visit: Yes (3) History of coronary artery disease Status: Chronic Assessment and plan: Cardiology consultation has been requested. 03/19-the patient was evaluated by cardiology on yesterday. We agree with the recommendations. We will continue aspirin and Lovenox per cardiology recommendation. Current Visit: Yes Hospitalist: Subjective Interval history: Patient seen and examined; chart reviewed. No significant overnight events reported per staff. Cardiology consultation on yesterday recommendations were given. Diffuse wheezing remaining. Exam - Constitutional Vitals: Period Temp Pulse Resp BP Sys/Schaffer Pulse Ox Last 24 Hr 96.5 F-98.2 F 61-88 15-22 113-184/57-99 94-100 General appearance: normal weight, no acute distress - Head Head exam: Present: normal inspection, normocephalic, atraumatic - Eye Eye exam: Present: EOMI. Absent: conjunctival injection Pupils: Present: EVELINE, normal accommodation - ENT ENT exam: Present: normal exam, normal external ear exam, normal oropharynx - Neck Neck exam: Present: normal inspection. Absent: lymphadenopathy, meningismus, tenderness, thyromegaly - Respiratory Respiratory exam: Present: wheezes - Cardiovascular Cardiovascular exam: Present: regular rate and rhythm (Diffuse). Absent: carotid bruit, diastolic murmur, gallop, JVD, rubs, systolic murmur - GI/Abdominal GI/Abdominal exam: Present: normal bowel sounds - Extremities Exam Extremities exam: Present: normal inspection, normal capillary refill, full ROM. Absent: edema - Back Exam Back exam: Present: normal inspection - Neurological Exam Neurological exam: Present: alert, oriented X3, CN II-XII intact - Psychiatric Psychiatric exam: Present: normal affect, normal mood - Skin Skin exam: Present: normal color, warm, dry Results - Labs CBC & BMP: 03/18/17 07:29 03/18/17 07:29 Lab Results: I have reviewed the past 24 hour labs Specialty Discharge - Follow Up or Referrals
--- NOTE | 2017-03-19 07:38 | Pulmonology Progress Note ---
Pulmonary - PN: Subj Interval history: The patient is a 76-year-old that comes in with asthmatic bronchitis. She has been sick for about a week or so. She says she had a fairly good night. She still has some cough but her breathing is better. She feels like she is responding to treatment and is having less wheezing. She is not short of breath. Exam (Progress Note) - Constitutional Vitals: Period Temp Pulse Resp BP Sys/Schaffer Pulse Ox Last 24 Hr 96.5 F-98.2 F 61-88 15-22 113-184/57-99 94-100 Exam: General appearance: normal weight, no acute distress (Patient looks more comfortable although she still has some cough.) - Head Head exam: Present: normal inspection, normocephalic - Eye Eye exam: Present: EOMI. Absent: scleral icterus Pupils: Present: EVELINE - ENT ENT exam: Present: other (No sinus tenderness) - Neck Neck exam: Absent: lymphadenopathy, thyromegaly - Respiratory Respiratory exam: Present: She has good breath sounds with good air movement and only minimal wheeze now . - Cardiovascular Cardiovascular exam: Present: regular rate and rhythm. Absent: gallop, JVD, systolic murmur - GI/Abdominal GI/Abdominal exam: Present: normal bowel sounds, soft. Absent: distended, organomegaly, tenderness - Extremities Exam Extremities exam: Absent: calf tenderness, edema - Neurological Exam Neurological exam: Present: alert, oriented X3, CN II-XII intact - Psychiatric Psychiatric exam: Present: normal affect, normal mood - Skin Skin exam: Present: warm, dry Results - Labs CBC & BMP: 03/18/17 07:29 03/18/17 07:29 Assessment and Plan (1) History of coronary artery disease Status: Chronic Assessment and plan: The patient has had previous bypass surgery but is not having angina now. She has no signs of heart failure. Current Visit: Yes (2) Diabetes Status: Chronic Assessment and plan: Her glucose is 339. Her glucoses will be monitored. Current Visit: Yes (3) Hypertension Status: Chronic Assessment and plan: Her blood pressure and heart rate appear under control. Current Visit: Yes (4) Acute bronchitis with bronchospasm Status: Acute Assessment and plan: Patient comes in with asthmatic bronchitis. Her coughing and wheezing are better. She is tolerating treatment. Overall she appears stable. Current Visit: Yes Specialty Discharge - Follow Up or Referrals
[2017-03-19 07:41] LABS: Hematocrit 35.6 VOL% (35.7-47.0); Hemoglobin 12.5 GM/DL (12.0-16.0); Immature Granulocytes % 0.7 %; Immature Granulocytes Absolute 0.04 #; Lymphocytes # 0.9 10*3/uL (1.4-4.0); Lymphocytes % 15.2 % (21.3-54.2); Mean Corpuscular HGB Conc 35.1 GM/DL (32-36); Mean Corpuscular Hemoglobin 30 PG (27-34); Mean Corpuscular Volume 85.2 FL (87-102); Mean Platelet Volume 9.9 FL (9.6-12.0); Monocytes % 0.7 % (1.7-12.7); Neutrophils # 5.1 10*3/uL (1.4-7.4); Neutrophils % 83.4 % (38.7-73.9); Platelet Count 205 T/CUMM (130-400); Red Blood Count 4.18 MC/CUMM (3.8-5.5); Red Cell Distribution Width 12.9 % (9.3-17.3); White Blood Count 6.1 T/CUMM (4-12)
[2017-03-19] MEDS: NEBIVOLOL 5 MG TABLET PO SCH (08:33)
[2017-03-19] MEDS: amLODIPine 10 MG TABLET PO SCH (08:33)
[2017-03-19] MEDS: LOVASTATIN 20 MG TABLET PO SCH (08:33)
[2017-03-19] MEDS: MONTELUKAST 10 MG TABLET PO SCH (08:34)
[2017-03-19] MEDS: INSULIN GLARGINE 100 UNIT/ML SUBCUT SCH (08:34)
[2017-03-19] MEDS: LEVOTHYROXINE 75 MCG TABLET PO SCH (08:34)
[2017-03-19] MEDS: INSULIN REGULAR 100 UNIT/ML SUBCUT SCH ×4 (08:48→21:50)
--- NOTE | 2017-03-19 11:11 | Cardiology Progress Note ---
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 Howard, 76HF, with risk factors significant for: Known CAD ( status post CABG twice), hypertension, dyslipidemia, diabetes, PVD, sedentary lifestyle and age. Patient has a history of 2 vessel CABG 1995 in [place] followed by PCI with 2 stents in [place], [place] in 1998. 2008 in [facility] emergent 2 vessel CABG. She has HUNTER to LAD, SVG to right PDA. The second surgery was a redo of the same vessels. Patient has required PCI and stenting of her bilateral lower extremities in the past. Myocardial perfusion study December 20, 2016: Abnormal perfusion study consistent with prior infarction. (See report). Results were discussed with patient in clinic. Echocardiogram December 17, 2016: EF 50%, grade 1 diastolic dysfunction, moderate concentric LVH. Mild mitral regurgitation, mild to moderate tricuspid regurgitation, PAP 32 mmHg. Admitted March 18, 2017 with complaints of worsening cough, wheezing and shortness of breath. She has history of COPD, asthma. She failed outpatient treatment with antibiotics. Coreg was discontinued due to wheezing and switched to Bystolic. She is not in congestive heart failure (proBNP 28). Troponin is negative. CT chest reveals possible mucous plugging. March: From a cardiac standpoint, she appears to be doing well. Agree with changing of Coreg to Bystolic to see if this will improve her wheezing. Blood pressure appears to be well controlled, she is in a normal sinus rhythm. Her lungs sound clear today than they did yesterday. From a cardiac standpoint, we will sign off. She will keep her current follow-up appointment. IMPRESSION/PLAN: 1. SHORTNESS OF BREATH -multifactorial to include COPD exacerbation, upper respiratory infection, bronchitis. She IS NOT in congestive heart failure. Continue aggressive pulmonary toilet. 2. KNOWN CAD - complaints of angina at this time. Will add aspirin and Lovenox. 3. HYPERTENSION - adequately controlled. 4. DYSLIPIDEMIA - continue lipid-lowering agent 5. PVD - adding Aspirin. Exam (Progress Note) - Constitutional Vitals: Period Temp Pulse Resp BP Sys/Schaffer Pulse Ox Last 24 Hr 97.4 F-98.2 F 63-88 18-22 123-135/58-91 94-100 Exam: General appearance: normal weight, no acute distress - Head Head exam: Present: normal inspection, normocephalic, atraumatic. Absent: hematoma, laceration - Eye Eye exam: Present: EOMI. Absent: conjunctival injection, nystagmus, periorbital swelling, scleral icterus, laceration to eyelids Pupils: Present: PERRL. Absent: constricted, dilated, fixed, irregular, unequal - ENT ENT exam: Present: normal exam, normal external ear exam - Neck Neck exam: Present: normal inspection. Absent: lymphadenopathy, meningismus, tenderness, thyromegaly - Respiratory Respiratory exam: Present: Increased air movement and less wheezing bilaterally. Absent: accessory muscle use, chest wall tenderness - Cardiovascular Cardiovascular exam: Present: regular rate and rhythm. Absent: carotid bruit, gallop, JVD, rubs - GI/Abdominal GI/Abdominal exam: Present: normal bowel sounds, soft. Absent: distended, firm , guarding, hernia, mass, tenderness, rebound. - Extremities Exam Extremities exam: Present: normal inspection, normal capillary refill. Absent: calf tenderness, edema - Back Exam Back exam: Present: normal inspection. Absent: muscle spasm, vertebral tenderness - Neurological Exam Neurological exam: Present: alert, oriented X3, grossly intact without resting or intention tremor - Psychiatric Psychiatric exam: Present: normal affect, normal mood - Skin Skin exam: Present: normal color, warm, dry, intact. Absent: cyanosis, diaphoretic, rash, urticaria Result/EKG - Labs CBC & BMP: 03/19/17 07:18 03/18/17 07:29 Lab Results: I have reviewed the past 24 hour labs Labs: Laboratory Results - last 24 hr 03/18/17 03/18/17 03/18/17 12:36 16:29 20:34 WBC RBC Hgb Hct MCV MCH MCHC RDW Plt Count MPV Neut % (Auto) Lymph % (Auto) Campbell % (Auto) Eos % (Auto) Baso % (Auto) Neut # (Auto) Lymph # (Auto) Campbell # (Auto) Eos # (Auto) Baso # (Auto) Immature Gran % Nucleated RBC % Immature Gran # Nucleated RBCs # Immature Plt Fraction POC Glucose 301 H 428 H Hemoglobin A1c 8.6 H 03/18/17 03/19/17 03/19/17 22:56 07:18 08:24 WBC 6.1 RBC 4.18 Hgb 12.5 Hct 35.6 L MCV 85.2 L MCH 30 MCHC 35.1 RDW 12.9 Plt Count 205 MPV 9.9 Neut % (Auto) 83.4 H Lymph % (Auto) 15.2 L Campbell % (Auto) 0.7 L Eos % (Auto) 0.0 Baso % (Auto) 0.0 Neut # (Auto) 5.1 Lymph # (Auto) 0.9 L Campbell # (Auto) 0.0 L Eos # (Auto) 0.0 Baso # (Auto) 0.0 Immature Gran % 0.7 Nucleated RBC % 0.0 Immature Gran # 0.04 Nucleated RBCs # 0.00 Immature Plt Fraction 0.0 POC Glucose 339 H 392 H Hemoglobin A1c Specialty Discharge - Follow Up or Referrals
[2017-03-19] MEDS ORDERED: NITROGLYCERIN SL 0.4 MG TABLET SL PRN (13:04)
[2017-03-19] MEDS: glipiZIDE 10 MG TABLET PO SCH (16:08)
[2017-03-19] MEDS ORDERED: SALMETEROL INH SCH (21:00)
[2017-03-19] MEDS ORDERED: FLUTICASONE INH SCH (21:00)
[2017-03-19] MEDS ORDERED: [UNRECOGNIZED DRUG - OTHER] INH SCH (21:00)
[2017-03-19] MEDS: ISOSORBIDE DINITRATE 20 MG TABLET PO SCH (21:48)
[2017-03-19] MEDS: sitaGLIPtin 100 MG TABLET PO SCH (21:49)
[2017-03-19] MEDS: ASPIRIN EC 81 MG TABLET PO SCH (21:49)
[2017-03-19] MEDS: ENOXAPARIN 40 MG/0.4 ML SYRINGE SUBCUT SCH (21:50)
[2017-03-20] MEDS: ALBUTEROL/IPRATROPIUM 3 ML NEB RESP TX SCH ×4 (00:45→19:42)
[2017-03-20] MEDS: DOXYCYCLINE HYCLATE INJ 100 MG in SODIUM CHLORIDE 0.9% 100 ML IV SCH ×2 (01:06→14:11)
[2017-03-20] MEDS: methylPREDNISolone SOD SUC 40 MG/1 ML VIAL IV SCH (02:53)
[2017-03-20 04:56] LABS: Calcium 9.9 MG/DL (8.5-10.1); Osmolality,Calculated 286.4 MOS/KG (273-304); Potassium 4.1 MMOL/L (3.5-5.1)
[2017-03-20 05:05] LABS: Phosphorous 2.7 MG/DL (2.5-4.9)
[2017-03-20] MEDS ORDERED: INSULIN GLARGINE 100 UNIT/ML SUBCUT SCH (09:00)
--- NOTE | 2017-03-20 09:03 | Pulmonology Progress Note ---
Pulmonary - PN: Subj Interval history: The patient is a 76-year-old that comes in with asthmatic bronchitis. She has been sick for about a week or so. She has been getting steroids and antibiotics and bronchodilators and is feeling better now. Her glucose has gone up on steroids. Her cough is much better and she is not wheezing very much at all now. She feels like she could go home soon. Exam (Progress Note) - Constitutional Vitals: Period Temp Pulse Resp BP Sys/Schaffer Pulse Ox Last 24 Hr 97.1 F-98.1 F 72-87 16-20 88-142/45-66 94-100 Exam: General appearance: normal weight, no acute distress (Patient looks more comfortable and is breathing much better.) - Head Head exam: Present: normal inspection, normocephalic - Eye Eye exam: Present: EOMI. Absent: scleral icterus Pupils: Present: EVELINE - ENT ENT exam: Present: other (No sinus tenderness) - Neck Neck exam: Absent: lymphadenopathy, thyromegaly - Respiratory Respiratory exam: Present: She has good breath sounds with good air movement and her wheezing is basically resolved now. - Cardiovascular Cardiovascular exam: Present: regular rate and rhythm. Absent: gallop, JVD, systolic murmur - GI/Abdominal GI/Abdominal exam: Present: normal bowel sounds, soft. Absent: distended, organomegaly, tenderness - Extremities Exam Extremities exam: Absent: calf tenderness, edema - Neurological Exam Neurological exam: Present: alert, oriented X3, CN II-XII intact - Psychiatric Psychiatric exam: Present: normal affect, normal mood - Skin Skin exam: Present: warm, dry Results - Labs CBC & BMP: 03/19/17 07:18 03/20/17 03:20 Assessment and Plan (1) History of coronary artery disease Status: Chronic Assessment and plan: The patient has had previous bypass surgery but is not having angina now. She has no signs of heart failure. Current Visit: Yes (2) Diabetes Status: Chronic Assessment and plan: Her glucose is 295. Her glucoses will be monitored. Current Visit: Yes (3) Hypertension Status: Chronic Assessment and plan: Her blood pressure and heart rate appear under control. Current Visit: Yes (4) Acute bronchitis with bronchospasm Status: Acute Assessment and plan: Patient comes in with asthmatic bronchitis. Her coughing and wheezing are better. She feels well enough to go home now. Will leave her on a Medrol Dosepak and some bronchodilators Current Visit: Yes Specialty Discharge - Follow Up or Referrals
--- NOTE | 2017-03-20 09:27 | Hospitalist Progress Note ---
Assessment and Plan (1) Acute bronchitis with bronchospasm Status: Acute Assessment and plan: The patient had audible wheezes upon auscultation at the time of presentation. Prolonged inhaled bronchodilator treatments were given in the ED. We will initiate empiric antibiotic coverage, inhaled bronchodilators, and intravenous corticosteroids. Due to the severity of the patient's presenting symptoms, a pulmonary consultation has been requested. 03/19-evaluated by pulmonology on yesterday. We appreciate the input. We will continue intravenous corticosteroids, empiric antibiotics, and inhaled bronchodilators as previously ordered. 03/20-Scattered wheezes remains. Will continue intravenous corticosteroids, empiric antibiotics, and inhaled bronchodilators as previously ordered. Current Visit: Yes (2) Diabetes Status: Chronic Assessment and plan: Hemoglobin A1c was noted at 8.6. We will place all oral hypoglycemic agents on hold and start Accu-Cheks with sliding scale coverage. 03/19-we will continue Accu-Cheks sliding scale coverage; we will resume Lantus 28 units every morning per home dose. 03/20-blood glucose levels remain moderately elevated. This is largely attributed to current corticosteroid use. We will continue Accu-Cheks with sliding scale coverage and Lantus dose as previously ordered. Current Visit: Yes (3) History of coronary artery disease Status: Chronic Assessment and plan: Cardiology consultation has been requested. 03/19-the patient was evaluated by cardiology on yesterday. We agree with the recommendations. We will continue aspirin and Lovenox per cardiology recommendation. 03/20-continue aspirin and Lovenox per cardiology recommendation. Current Visit: Yes Hospitalist: Subjective Interval history: Patient seen and examined; chart reviewed. No significant overnight events reported per staff. Scattered wheezes remain. We will continue supportive care as previously ordered. The patient may be appropriate for discharge in a.m. if no significant events overnight. Exam - Constitutional Vitals: Period Temp Pulse Resp BP Sys/Schaffer Pulse Ox Last 24 Hr 97.1 F-98.1 F 72-87 16-20 88-142/45-66 94-100 General appearance: normal weight, no acute distress - Head Head exam: Present: normal inspection, normocephalic, atraumatic - Eye Eye exam: Present: EOMI. Absent: conjunctival injection Pupils: Present: EVELINE, normal accommodation - ENT ENT exam: Present: normal exam, normal external ear exam, normal oropharynx - Neck Neck exam: Present: normal inspection. Absent: lymphadenopathy, meningismus, tenderness, thyromegaly - Respiratory Respiratory exam: Present: wheezes (Scattered wheezes) - Cardiovascular Cardiovascular exam: Present: carotid bruit, diastolic murmur, gallop, JVD, regular rate and rhythm, rubs. Absent: systolic murmur - GI/Abdominal GI/Abdominal exam: Present: normal bowel sounds, soft - Extremities Exam Extremities exam: Present: normal inspection, normal capillary refill, full ROM. Absent: edema - Back Exam Back exam: Present: normal inspection - Neurological Exam Neurological exam: Present: alert, oriented X3, CN II-XII intact - Psychiatric Psychiatric exam: Present: normal affect, normal mood - Skin Skin exam: Present: normal color, warm, dry Results - Labs CBC & BMP: 03/19/17 07:18 03/20/17 03:20 Lab Results: I have reviewed the past 24 hour labs Specialty Discharge - Follow Up or Referrals
[2017-03-20] MEDS ORDERED: methylPREDNISolone 4 MG TABLET PO SCH (09:30)
[2017-03-20] MEDS: INSULIN REGULAR 100 UNIT/ML SUBCUT SCH ×4 (10:09→20:25)
[2017-03-20] MEDS: glipiZIDE 10 MG TABLET PO SCH ×2 (10:09→16:18)
[2017-03-20] MEDS: NEBIVOLOL 5 MG TABLET PO SCH (10:10)
[2017-03-20] MEDS: ISOSORBIDE DINITRATE 20 MG TABLET PO SCH ×2 (10:10→20:25)
[2017-03-20] MEDS: LOSARTAN 50 MG TABLET PO SCH (10:10)
[2017-03-20] MEDS: LOVASTATIN 20 MG TABLET PO SCH (10:11)
[2017-03-20] MEDS: INSULIN GLARGINE 100 UNIT/ML SUBCUT SCH (10:11)
[2017-03-20] MEDS: LEVOTHYROXINE 75 MCG TABLET PO SCH (10:13)
[2017-03-20] MEDS: MONTELUKAST 10 MG TABLET PO SCH (10:13)
[2017-03-20] MEDS: amLODIPine 10 MG TABLET PO SCH (10:15)
[2017-03-20] MEDS: methylPREDNISolone 4 MG TABLET PO SCH ×2 (14:11→20:25)
[2017-03-20] MEDS: sitaGLIPtin 100 MG TABLET PO SCH (20:24)
[2017-03-20] MEDS: ASPIRIN EC 81 MG TABLET PO SCH (20:25)
[2017-03-20] MEDS: ENOXAPARIN 40 MG/0.4 ML SYRINGE SUBCUT SCH (20:25)
[2017-03-21] MEDS: DOXYCYCLINE HYCLATE INJ 100 MG in SODIUM CHLORIDE 0.9% 100 ML IV SCH (01:00)
[2017-03-21] MEDS: ALBUTEROL/IPRATROPIUM 3 ML NEB RESP TX SCH ×2 (01:04→07:18)
[2017-03-21 06:13] LABS: Basophils % 0.1 % (0.0-0.8); Hematocrit 35.5 VOL% (35.7-47.0); Hemoglobin 12.3 GM/DL (12.0-16.0); Immature Granulocytes % 1.7 %; Immature Granulocytes Absolute 0.19 #; Lymphocytes % 8.7 % (21.3-54.2); Mean Corpuscular HGB Conc 34.6 GM/DL (32-36); Mean Corpuscular Hemoglobin 30 PG (27-34); Mean Corpuscular Volume 87.9 FL (87-102); Mean Platelet Volume 10.1 FL (9.6-12.0); Monocytes # 0.5 10*3/uL (0.11-0.8); Monocytes % 4.1 % (1.7-12.7); Neutrophils # 9.8 10*3/uL (1.4-7.4); Neutrophils % 85.4 % (38.7-73.9); Platelet Count 252 T/CUMM (130-400); Red Blood Count 4.04 MC/CUMM (3.8-5.5); Red Cell Distribution Width 13.4 % (9.3-17.3); White Blood Count 11.5 T/CUMM (4-12)
[2017-03-21 06:46] LABS: Albumin 3.2 G/DL (3.4-5.0); Bilirubin,Total 0.8 MG/DL (0.2-1.0); Calcium 9.9 MG/DL (8.5-10.1); Magnesium 2.2 MG/DL (1.8-2.4); Osmolality,Calculated 283.3 MOS/KG (273-304); Phosphorous 2.6 MG/DL (2.5-4.9); Potassium 4.3 MMOL/L (3.5-5.1); Total Protein 6.2 G/DL (6.4-8.3)
--- NOTE | 2017-03-21 08:14 | XRay Report ---
History is COPD, short of breath Comparison 03/18/2017 The heart is normal in size with prior median sternotomy 8mm rounded density overlying the right lung apex present. No consolidated infiltrates seen. Stent overlying the left lung apex noted. Elongated opacity in the retrocardiac left base present Impression: 1. 8 mm nodular density over the right lung apex most likely confluent shadows. Attention on follow-up recommended 2. Minimal left basilar scarring or atelectasis PROCEDURE INTERPRETED AT [facility] DEPARTMENT OF RADIOLOGY Final Report Signed by: Dr. Charis Lujan
[2017-03-21] MEDS: INSULIN REGULAR 100 UNIT/ML SUBCUT SCH (08:24)
[2017-03-21 08:29] VITALS: BP 148/77
--- NOTE | 2017-03-21 08:39 | Pulmonology Progress Note ---
Pulmonary - PN: Subj Interval history: The patient is a 76-year-old that comes in with asthmatic bronchitis. She has been sick for about a week or so. She has been getting steroids and antibiotics and bronchodilators and is feeling better now. Her cough is better and her shortness of breath has resolved. Her glucose is better after cutting back on her steroids. Her chest x-ray is okay. She has some very minimal atelectasis in the left base. She will need to continue with bronchodilator therapy and taper steroids. She can come back to the clinic for follow-up. Exam (Progress Note) - Constitutional Vitals: Period Temp Pulse Resp BP Sys/Schaffer Pulse Ox Last 24 Hr 97.3 F-97.7 F 70-88 16-20 102-148/45-77 95-100 Exam: General appearance: normal weight, no acute distress (Patient looks more comfortable and is breathing much better. She says she had a good night.) - Head Head exam: Present: normal inspection, normocephalic - Eye Eye exam: Present: EOMI. Absent: scleral icterus Pupils: Present: EVELINE - ENT ENT exam: Present: other (No sinus tenderness) - Neck Neck exam: Absent: lymphadenopathy, thyromegaly - Respiratory Respiratory exam: Present: She has good breath sounds with good air movement and her wheezing is basically resolved now. Her lungs sound much clearer now. - Cardiovascular Cardiovascular exam: Present: regular rate and rhythm. Absent: gallop, JVD, systolic murmur - GI/Abdominal GI/Abdominal exam: Present: normal bowel sounds, soft. Absent: distended, organomegaly, tenderness - Extremities Exam Extremities exam: Absent: calf tenderness, edema - Neurological Exam Neurological exam: Present: alert, oriented X3, CN II-XII intact - Psychiatric Psychiatric exam: Present: normal affect, normal mood - Skin Skin exam: Present: warm, dry Results - Labs CBC & BMP: 03/21/17 04:55 03/21/17 04:55 - Diagnostic Findings Procedure: Chest x-ray: image reviewed by me, report reviewed by me (Chest x- ray shows minimal linear atelectasis in the left base.) Assessment and Plan (1) History of coronary artery disease Status: Chronic Assessment and plan: The patient has had previous bypass surgery but is not having angina now. She has no signs of heart failure. Current Visit: Yes (2) Diabetes Status: Chronic Assessment and plan: Her glucose is 132 this morning. Current Visit: Yes (3) Hypertension Status: Chronic Assessment and plan: Her blood pressure and heart rate appear under control. Current Visit: Yes (4) Acute bronchitis with bronchospasm Status: Acute Assessment and plan: Patient comes in with asthmatic bronchitis. Her coughing and wheezing are better. She says she is breathing much better. Overall she looks stable. She can go home and follow-up in the clinic. Current Visit: Yes Specialty Discharge - Follow Up or Referrals
[2017-03-21] MEDS: LOSARTAN 50 MG TABLET PO SCH (08:54)
[2017-03-21] MEDS: methylPREDNISolone 4 MG TABLET PO SCH (08:54)
[2017-03-21] MEDS: NEBIVOLOL 5 MG TABLET PO SCH (08:54)
[2017-03-21] MEDS: MONTELUKAST 10 MG TABLET PO SCH (08:54)
[2017-03-21] MEDS: ISOSORBIDE DINITRATE 20 MG TABLET PO SCH (08:54)
[2017-03-21] MEDS: glipiZIDE 10 MG TABLET PO SCH (08:54)
[2017-03-21] MEDS: LOVASTATIN 20 MG TABLET PO SCH (08:54)
[2017-03-21] MEDS: amLODIPine 10 MG TABLET PO SCH (08:54)
[2017-03-21] MEDS: LEVOTHYROXINE 75 MCG TABLET PO SCH (08:54)
[2017-03-21] MEDS: INSULIN GLARGINE 100 UNIT/ML SUBCUT SCH (08:55)
--- NOTE | 2017-03-21 10:25 | Discharge Summary ---
Hospital Course - Hospital Course Hospital Course: 76-year-old female admitted to the hospital with shortness of breath cough and dyspnea. She was treated for asthma exacerbation and bronchitis. She was started on a Medrol Dosepak and received doxycycline 100 mg IV every 12. She had nebulizer treatments that were scheduled and has needed. She was seen in consultation by pulmonary. Her symptoms have improved and she is ready for discharge home. She is diabetic and had some hyperglycemia during the hospitalization secondary to steroid use. I had a lengthy discussion with her and her daughter at the bedside this morning regarding her discharge and medications and follow-up instructions. They verbalized their understanding and agreed to move forward with discharge. She is receiving a prescription for Medrol Dosepak and Augmentin 1 tablet by mouth twice daily for 7 days. She has a nebulizer machine at home and has been encouraged to use duo nebs as well as her Advair inhaler as prescribed. She is also on Singulair and plans to follow- up with her primary care physician. Home medications were reviewed and reconciled. The patient is a full code. - Time spent with patient Time with patient DS: Greater than 30 minutes (Total discharge time for this patient, including [id number] time, clinical documentation, medication reconciliation, and discharge planning was 34 minutes.) Diagnosis - Discharge Diagnosis (1) Acute bronchitis with bronchospasm Status: Acute (2) History of coronary artery disease Status: Chronic (3) Diabetes Status: Chronic (4) Hypertension Status: Chronic (5) Dyslipidemia Status: Chronic Specialty Discharge - Follow Up or Referrals Discharge Plan - Discharge Data Disposition: Disch To Home/Self Care Condition at Discharge: Stable Discharge Diet: diabetic diet Activity: resume usual activities as tolerated Hygiene: no restrictions Weight Bearing at Discharge: full weight bearing - Discharge Medications New Albuterol/Ipratropium Neb [Duoneb] 3 ml RESP TX RT Q6H methylPREDNISolone DOSEPAK [Medrol Dosepak] 4 mg PO DIRECTED #1 pack Albuterol Neb [Proventil Neb] 2.5 mg RESP TX RT Q4H PRN PRN Reason: Shortness Of Breath/Wheezing metFORMIN XR [Glucophage Xr] 1,000 mg PO BEDTIME tablet Continue Albuterol Sulfate [Proair HFA] 2 puffs INH Q4H PRN PRN Reason: Shortness Of Breath/Wheezing Carvedilol [Coreg] 12.5 mg PO BID Fluticasone/Salmeterol [Advair Hfa 115-21 Mcg Inhaler] 1 puff INH BID Lovastatin [Altoprev] 40 mg PO DAILY W/SUPPER Levothyroxine Tab [Synthroid Tab] 75 mcg PO DAILY@0500 Sitagliptin Phos/Metformin HCl [Janumet Xr 100-1,000 mg Tablet] 1 tablet PO BEDTIME glipiZIDE [Glipizide] 10 mg PO BIDAC amLODIPine [Norvasc] 10 mg PO QAM hydrOXYzine HCl [Hydroxyzine HCl] 25 mg PO BEDTIME PRN PRN Reason: itching/insomnia Isosorbide Dinitrate [Isordil] 20 mg PO BID Nitroglycerin Sl Tab [Nitrostat] 0.4 mg SL Q5M PRN PRN Reason: Chest Pain Promethazine HCl/Codeine [Promethazine-Codeine Syrup] 5 ml PO Q12H PRN PRN Reason: Cough Amoxicillin/Potassium Clav [Amox-Clav 500-125 mg Tablet] 1 each PO BID #14 tablet Insulin Glargine,Hum.rec.anlog [Lantus SoloStar] 28 units SUBCUT QAM Montelukast Tab [Singulair Tab] 10 mg PO BEDTIME Aspirin EC Tab 81 mg PO BEDTIME Losartan [Cozaar] 50 mg PO QAM Albuterol Sulfate [Albuterol Neb] 3 ml INH Q6H PRN PRN Reason: Shortness Of Breath/Wheezing - Follow Up or Referral - Forms/Instructions Instructions: Heart Healthy Diet (GEN), Acute Bronchitis (GEN), Chronic Obstructive Pulmonary Disease (GEN), Bronchospasm (GEN) Additional Discharge Instructions: Follow-up with your primary care physician in 1 week. Monitor blood sugars closely on steroids. Exam - Constitutional Vitals: Period Temp Pulse Resp BP Sys/Schaffer Pulse Ox Last 24 Hr 97.3 F-97.7 F 70-88 16-20 102-148/45-77 95-100 Discharge Results Procedures and tests throughout hospitalization: Pending Orders 03/18/17 12:36 Blood Culture Stat Legionella Ag, Urine Stat Procalcitonin, S Stat Streptococcus pneumoniae Ag, U Stat Labs on day of discharge: Labs from last 24 hours 03/21/17 03/21/17 03/21/17 07:04 04:55 04:55 WBC 11.5 D RBC 4.04 Hgb 12.3 Hct 35.5 L MCV 87.9 MCH 30 MCHC 34.6 RDW 13.4 Plt Count 252 D MPV 10.1 Neut % (Auto) 85.4 H Lymph % (Auto) 8.7 L Rhea % (Auto) 4.1 Eos % (Auto) 0.0 Baso % (Auto) 0.1 Neut # (Auto) 9.8 H Lymph # (Auto) 1.0 L Rhea # (Auto) 0.5 Eos # (Auto) 0.0 Baso # (Auto) 0.0 Immature Gran % 1.7 Nucleated RBC % 0.0 Immature Gran # 0.19 Nucleated RBCs # 0.00 Immature Plt Fraction 0.0 Sodium 141 Potassium 4.3 Chloride 106 Carbon Dioxide 24 Anion Gap 15.3 H BUN 22 H Creatinine 0.60 GFR Calculation 79 BUN/Creatinine Ratio 36.00 H Glucose 98 POC Glucose 132 H Calculated Osmolality 283.3 Calcium 9.9 Phosphorus 2.6 Magnesium 2.2 Total Bilirubin 0.80 AST 9 ALT 14 Alkaline Phosphatase 60 Total Protein 6.2 L Albumin 3.2 L Globulin 3.0 Albumin/Globulin Ratio 1.0 L 03/20/17 03/20/17 03/20/17 18:39 15:26 11:53 WBC RBC Hgb Hct MCV MCH MCHC RDW Plt Count MPV Neut % (Auto) Lymph % (Auto) Rhea % (Auto) Eos % (Auto) Baso % (Auto) Neut # (Auto) Lymph # (Auto) Rhea # (Auto) Eos # (Auto) Baso # (Auto) Immature Gran % Nucleated RBC % Immature Gran # Nucleated RBCs # Immature Plt Fraction Sodium Potassium Chloride Carbon Dioxide Anion Gap BUN Creatinine GFR Calculation BUN/Creatinine Ratio Glucose POC Glucose 357 H 336 H 332 H Calculated Osmolality Calcium Phosphorus Magnesium Total Bilirubin AST ALT Alkaline Phosphatase Total Protein Albumin Globulin Albumin/Globulin Ratio Preliminary micro results at discharge 03/18/17 12:36 Blood Culture - Preliminary Blood No growth at 1 day 03/18/17 12:36 Blood Culture - Preliminary Blood No growth at 1 day DS: Provider Date of admission: 03/18/17 09:01 Primary care physician: Rigoberto Peña Attending physician on admission: Nereida Zepeda MD Consults: 03/18/17 09:24 Consult to Physician [CONS] Routine Comment: Consulting Provider: Yash Blount When should Consulting Provider be notified: Now Consult Notification Comment: has been seen per reports Consult to Physician [CONS] Routine Comment: Consulting Provider: Christofer Delarosa When should Consulting Provider be notified: Now Person Notified: MARY ANNE Date Notified: 03/18/17 Time Notified: 12:00 03/18/17 09:25 Consult to Pulmonary Rehabilitation [CONS] Routine Reason for Pulmonary Rehabilitation: COPD Discharging clinician: Caren Reynolds MD Expected date of discharge: 03/21/17
[2017-03-22 13:31] LABS: Procalcitonin, S < 0.10 ng/mL (<=0.15)
== END 2017-03-21 11:20 | disposition home or self-care (01) | DRG 192 ==
LOC: N.ED 07:01 → N.EDINP 09:01 → SUATTDRO 09:01 → N.2E 09:18
PROVIDERS: ADMIT Hospitalist; ATTEND Family Medicine

== ENCOUNTER 2018-01-29 19:56 | Inpatient (IN) ==
[2018-01-29] MEDS ORDERED: ACETAMINOPHEN 500 MG TABLET ONE (20:25)
[2018-01-29 21:38] LABS: Basophils # 0.1 10*3/uL (0.0-0.2); Basophils % 0.6 % (0.0-0.8); Eosinophils # 0.6 10*3/uL (0.0-0.87); Eosinophils % 7.3 % (0.00-10.9); Hematocrit 37.4 VOL% (35.7-47.0); Hemoglobin 12.9 GM/DL (12.0-16.0); Immature Granulocytes % 0.5 %; Immature Granulocytes Absolute 0.04 #; Lymphocytes # 2.4 10*3/uL (1.4-4.0); Lymphocytes % 31.1 % (21.3-54.2); Mean Corpuscular HGB Conc 34.5 GM/DL (32-36); Mean Corpuscular Hemoglobin 31 PG (27-34); Monocytes # 0.6 10*3/uL (0.11-0.8); Monocytes % 7.4 % (1.7-12.7); Neutrophils # 4.1 10*3/uL (1.4-7.4); Neutrophils % 53.1 % (38.7-73.9); Platelet Count 219 T/CUMM (130-400); Red Blood Count 4.11 MC/CUMM (3.8-5.5); Red Cell Distribution Width 13.2 % (9.3-17.3); White Blood Count 7.7 T/CUMM (4-12)
[2018-01-29 21:49] LABS: INR 0.9; Partial Thromboplastin Time 25.5 SECS (0-40)
[2018-01-29 22:05] LABS: Alanine Aminotransferase 20 U/L (13-56); Albumin 3.8 G/DL (3.4-5.0); Alkaline Phosphatase 74 U/L (45-117); Aspartate Amino Transferase 14 U/L (0-37); Blood Urea Nitrogen 26 MG/DL (7-18); Calcium 9.6 MG/DL (8.5-10.1); Glucose 141 MG/DL (74-106); Osmolality,Calculated 279.8 MOS/KG (273-304); Potassium 3.7 MMOL/L (3.5-5.1); Sodium 137 MMOL/L (136-145); Troponin I Only < 0.015 NG/ML (0.00-0.045)
[2018-01-29 22:11] LABS: Free T4 (Free Thyroxine) 0.83 NG/DL (0.76-1.46); Thyroid Stimulating Hormone 7.88 uIU/ml (0.358-3.74)
[2018-01-29] MEDS ORDERED: ACETAMINOPHEN 500 MG TABLET PO PRN (22:42)
[2018-01-29] MEDS ORDERED: DEXTROSE 50% 25 GM/50 ML VIAL IV PRN (22:42)
[2018-01-29] MEDS ORDERED: GLUCAGON 1 MG VIAL IM PRN (22:42)
[2018-01-29] MEDS ORDERED: ONDANSETRON 4 MG/2 ML VIAL IV PRN (22:42)
[2018-01-29 23:31] LABS: Apearance,Urine CLEAR (Clear); Bilirubin,Urine Negative (Negative); Blood, Urine Negative (Negative); Glucose,Urine (UA) Negative (Negative); Hyaline Casts,Urine 16 /LPF (0-3); Ketones,Urine Negative (Negative); Nitrite,Urine Negative (Negative); Protein,Urine Negative; RBC,Urine 1 /HPF (0-4); Squamous Epithelial Cell,Urine Occasional /HPF (0-10); Urine Color Yellow (Yellow); Urine Specific Gravity 1.014 (1.001-1.035); Urine Urobilinogen < 2.0 EU/DL (0.2-1.0); WBC,Urine 1 /HPF (0-6)
[2018-01-30] MEDS: ALBUTEROL/IPRATROPIUM 3 ML NEB RESP TX SCH ×4 (00:16→19:22)
[2018-01-30 05:42] LABS: Calcium 9.4 MG/DL (8.5-10.1); Osmolality,Calculated 265.5 MOS/KG (273-304); Potassium 3.6 MMOL/L (3.5-5.1)
[2018-01-30 05:44] LABS: Risk Ratio 3.5; VLDL CHOLESTEROL 31.8 MG/DL
[2018-01-30] MEDS: CARVEDILOL 12.5 MG TABLET PO SCH ×2 (08:24→17:14)
[2018-01-30] MEDS: ISOSORBIDE DINITRATE 20 MG TABLET PO SCH ×2 (08:24→20:29)
[2018-01-30] MEDS: glipiZIDE 10 MG TABLET PO SCH (08:24)
[2018-01-30] MEDS: OLMESARTAN 20 MG TABLET PO SCH (08:24)
[2018-01-30] MEDS: PANTOPRAZOLE 40 MG TABLET PO SCH (08:25)
[2018-01-30] MEDS: INSULIN REGULAR 100 UNIT/ML SUBCUT SCH ×4 (08:25→20:32)
[2018-01-30] MEDS: INSULIN GLARGINE 100 UNIT/ML SUBCUT SCH ×2 (08:25→10:00)
[2018-01-30] MEDS ORDERED: NITROGLYCERIN SL 0.4 MG TABLET SL PRN (08:55)
[2018-01-30] MEDS ORDERED: VILANTEROL TR INH SCH (09:00)
[2018-01-30] MEDS ORDERED: UMECLIDINIUM BRM INH SCH (09:00)
[2018-01-30] MEDS: hydroCHLOROthiazide 12.5 MG CAPSULE PO SCH (10:10)
[2018-01-30] MEDS: MOMETASONE 220 MCG/PUFF INHALER 14 DOSE INH SCH (10:11)
[2018-01-30] MEDS ORDERED: LOVASTATIN 40 MG PO SCH (17:00)
[2018-01-30] MEDS: LOVASTATIN 20 MG TABLET PO SCH (17:14)
[2018-01-30] MEDS: sitaGLIPtin 100 MG TABLET PO SCH (20:29)
[2018-01-30] MEDS: ASPIRIN EC 81 MG TABLET PO SCH (20:29)
[2018-01-30] MEDS ORDERED: sitaGLIPtin 25 MG TABLET PO SCH (21:00)
[2018-01-31] MEDS: ALBUTEROL/IPRATROPIUM 3 ML NEB RESP TX SCH ×4 (00:32→19:05)
[2018-01-31 05:17] LABS: Basophils % 0.6 % (0.0-0.8); Eosinophils # 0.5 10*3/uL (0.0-0.87); Eosinophils % 8.5 % (0.00-10.9); Hemoglobin 12.6 GM/DL (12.0-16.0); Immature Granulocytes % 0.3 %; Immature Granulocytes Absolute 0.02 #; Lymphocytes # 2.1 10*3/uL (1.4-4.0); Lymphocytes % 33.1 % (21.3-54.2); Mean Corpuscular Hemoglobin 31 PG (27-34); Mean Corpuscular Volume 87.8 FL (87-102); Mean Platelet Volume 10.1 FL (9.6-12.0); Monocytes # 0.5 10*3/uL (0.11-0.8); Monocytes % 7.3 % (1.7-12.7); NRBC # 0.02 10*3/uL; Neutrophils # 3.1 10*3/uL (1.4-7.4); Neutrophils % 50.2 % (38.7-73.9); Platelet Count 202 T/CUMM (130-400); Red Cell Distribution Width 13.2 % (9.3-17.3); White Blood Count 6.2 T/CUMM (4-12)
[2018-01-31 05:34] LABS: Calcium 9.6 MG/DL (8.5-10.1); Osmolality,Calculated 270.1 MOS/KG (273-304); Potassium 3.7 MMOL/L (3.5-5.1)
[2018-01-31] MEDS: INSULIN GLARGINE 100 UNIT/ML SUBCUT SCH ×2 (09:00→10:39)
[2018-01-31] MEDS: ISOSORBIDE DINITRATE 20 MG TABLET PO SCH ×2 (09:00→21:07)
[2018-01-31] MEDS: glipiZIDE 10 MG TABLET PO SCH (09:00)
[2018-01-31] MEDS: PANTOPRAZOLE 40 MG TABLET PO SCH (09:00)
[2018-01-31] MEDS: OLMESARTAN 20 MG TABLET PO SCH (09:00)
[2018-01-31] MEDS: MOMETASONE 220 MCG/PUFF INHALER 14 DOSE INH SCH (09:01)
[2018-01-31] MEDS: CARVEDILOL 12.5 MG TABLET PO SCH ×2 (09:01→16:24)
[2018-01-31] MEDS: INSULIN REGULAR 100 UNIT/ML SUBCUT SCH ×4 (09:02→21:08)
[2018-01-31] MEDS: hydroCHLOROthiazide 12.5 MG CAPSULE PO SCH (10:39)
[2018-01-31] MEDS: LOVASTATIN 20 MG TABLET PO SCH (16:24)
[2018-01-31] MEDS: ASPIRIN EC 81 MG TABLET PO SCH (21:07)
[2018-01-31] MEDS: sitaGLIPtin 100 MG TABLET PO SCH (21:07)
[2018-02-01] MEDS: ALBUTEROL/IPRATROPIUM 3 ML NEB RESP TX SCH ×3 (00:40→12:42)
[2018-02-01] MEDS: INSULIN REGULAR 100 UNIT/ML SUBCUT SCH ×2 (07:45→14:16)
[2018-02-01] MEDS: CARVEDILOL 12.5 MG TABLET PO SCH (08:23)
[2018-02-01] MEDS: OLMESARTAN 20 MG TABLET PO SCH (08:23)
[2018-02-01] MEDS: INSULIN GLARGINE 100 UNIT/ML SUBCUT SCH ×2 (08:23→08:28)
[2018-02-01] MEDS: MOMETASONE 220 MCG/PUFF INHALER 14 DOSE INH SCH ×2 (08:23→08:33)
[2018-02-01] MEDS: ISOSORBIDE DINITRATE 20 MG TABLET PO SCH (08:23)
[2018-02-01] MEDS: glipiZIDE 10 MG TABLET PO SCH (08:23)
[2018-02-01] MEDS: PANTOPRAZOLE 40 MG TABLET PO SCH (08:23)
[2018-02-01] MEDS ORDERED: CLOPIDOGREL 75 MG TABLET PO SCH (09:00)
[2018-02-01 12:31] VITALS: BP 99/53
[2018-02-01] MEDS ORDERED: DONEPEZIL 5 MG TABLET PO SCH (21:00)
== END 2018-02-01 14:55 | disposition home or self-care (01) | DRG 69 ==
LOC: N.ED 19:56 → N.EDINP 22:40 → N.4E 23:46
PROVIDERS: ADMIT Family Medicine; ATTEND Family Medicine

== ENCOUNTER 2020-03-23 20:00 | Inpatient (IN) ==
[2020-03-23 20:36] LABS: Basophils # 0.1 10*3/uL (0.0-0.2); Basophils % 0.8 % (0.0-0.8); Eosinophils # 0.3 10*3/uL (0.0-0.87); Hematocrit 41.9 VOL% (35.7-47.0); Hemoglobin 14.3 GM/DL (12.0-16.0); Immature Granulocytes % 0.3 %; Immature Granulocytes Absolute 0.02 #; Lymphocytes # 2.8 10*3/uL (1.4-4.0); Lymphocytes % 36.5 % (21.3-54.2); Mean Corpuscular HGB Conc 34.1 GM/DL (32-36); Mean Corpuscular Volume 89.1 FL (87-102); Mean Platelet Volume 9.7 FL (9.6-12.0); Monocytes % 7.4 % (1.7-12.7); Platelet Count 251 T/CUMM (130-400); Red Cell Distribution Width 12.1 % (9.3-17.3); White Blood Count 7.7 T/CUMM (4-12)
[2020-03-23] MEDS ORDERED: LABETALOL 20 MG/4 ML SYRINGE IV STA (20:42)
[2020-03-23] MEDS ORDERED: ASPIRIN EC 325 MG TABLET PO STA (20:54)
[2020-03-23 20:57] LABS: Albumin 4.3 G/DL (3.4-5.0); Bilirubin,Total 0.5 MG/DL (0.2-1.0); Calcium 10.9 MG/DL (8.5-10.1); Osmolality,Calculated 267.9 MOS/KG (273-304); Total Protein 7.9 G/DL (6.4-8.3)
[2020-03-23] MEDS ORDERED: ASPIRIN 325 MG TABLET ONE (21:05)
[2020-03-23 21:13] LABS: INR 1.1; PT Patient Result 11.4 SECS (9.8-11.9)
[2020-03-23 21:29] LABS: Bacteria,Urine Occasional /HPF (Few); Bilirubin,Urine Negative (Negative); Blood, Urine Small mg/dL (Negative); Glucose,Urine (UA) 150 mg/dL (Negative); Hyaline Casts,Urine 4 /LPF (0-3); Ketones,Urine 5 mg/dL (Negative); Mucus,Urine Occasional /LPF (Occasional); Nitrite,Urine Negative (Negative); Protein,Urine Negative; RBC,Urine 3 /HPF (0-4); Squamous Epithelial Cell,Urine Occasional /HPF (0-10); Urine Appearance CLEAR (Clear); Urine Color Yellow (Yellow); Urine Specific Gravity 1.019 (1.001-1.035); Urine Urobilinogen < 2.0 EU/DL (0.2-1.0); WBC,Urine 3 /HPF (0-6)
[2020-03-23] MEDS ORDERED: HEPARIN 5,000 UNIT/1 ML VIAL IV PRN ×2 (21:50→23:09)
[2020-03-23] MEDS ORDERED: HEPARIN DRIP 25,000 UNITS/500 ML PREMIX IV SCH (22:00)
[2020-03-23] MEDS ORDERED: DEXTROSE 50% 25 GM/50 ML VIAL IV PRN (22:45)
[2020-03-23] MEDS ORDERED: ONDANSETRON 4 MG/2 ML VIAL IV PRN (22:45)
[2020-03-23] MEDS ORDERED: GLUCAGON 1 MG VIAL IM PRN (22:45)
[2020-03-23] MEDS ORDERED: DEXTROSE 50% 25 GM/50 ML SYRINGE IV PRN (22:53)
[2020-03-23 23:12] LABS: Barbiturates Screen,Urine Negative (Negative); Benzodiazepines Screen,Urine Negative (Negative); Cannabinoid Screen,Urine Negative (Negative); Opiate Screen,Urine Negative (Negative); Phencyclidine Screen,Urine Negative (Negative)
[2020-03-23] MEDS ORDERED: INFLUENZA VIRUS VACCINE 0.5 ML SYRINGE IM ONE (23:33)
[2020-03-24] MEDS: SODIUM CHLORIDE 0.9% 1,000 ML IV SCH ×2 (00:04→16:43)
[2020-03-24] MEDS: HEPARIN DRIP 25,000 UNITS/500 ML PREMIX IV SCH (00:12)
[2020-03-24] MEDS: ACETAMINOPHEN 325 MG TABLET PO PRN (00:16)
[2020-03-24] MEDS ORDERED: amLODIPine 10 MG TABLET PO ONE (02:03)
[2020-03-24 06:12] LABS: Basophils % 0.4 % (0.0-0.8); Eosinophils # 0.1 10*3/uL (0.0-0.87); Eosinophils % 0.7 % (0.00-10.9); Hematocrit 35.8 VOL% (35.7-47.0); Hemoglobin 12.8 GM/DL (12.0-16.0); Immature Granulocytes % 0.4 %; Immature Granulocytes Absolute 0.03 #; Lymphocytes # 1.6 10*3/uL (1.4-4.0); Lymphocytes % 18.8 % (21.3-54.2); Mean Corpuscular HGB Conc 35.8 GM/DL (32-36); Mean Corpuscular Volume 88.6 FL (87-102); Mean Platelet Volume 10.2 FL (9.6-12.0); Monocytes % 4.8 % (1.7-12.7); Neutrophils % 74.9 % (38.7-73.9); Platelet Count 200 T/CUMM (130-400); Red Blood Count 4.04 MC/CUMM (3.8-5.5); Red Cell Distribution Width 11.9 % (9.3-17.3); White Blood Count 8.3 T/CUMM (4-12)
[2020-03-24 06:31] LABS: Risk Ratio 4.88; VLDL CHOLESTEROL 51.8 MG/DL
[2020-03-24 06:39] LABS: Bilirubin,Total 0.8 MG/DL (0.2-1.0); Calcium 10.1 MG/DL (8.5-10.1); Osmolality,Calculated 266.8 MOS/KG (273-304); Thyroid Stimulating Hormone 0.536 uIU/ml (0.358-3.74)
[2020-03-24] MEDS: INSULIN LISPRO 100 UNIT/ML SUBCUT SCH ×4 (08:31→23:46)
[2020-03-24] MEDS ORDERED: LORazepam 2 MG/1 ML VIAL IV ONE ×2 (08:47→14:19)
[2020-03-24] MEDS ORDERED: diphenhydrAMINE 50 MG/1 ML VIAL IV ONE ×2 (08:47→14:20)
[2020-03-24] MEDS ORDERED: METOPROLOL TARTRATE 25 MG TABLET PO SCH (09:00)
[2020-03-24] MEDS ORDERED: ROSUVASTATIN 20 MG TABLET PO SCH (09:00)
[2020-03-24] MEDS ORDERED: NON-FORMULARY MEDICATION (Albuterol Sulfate [Proair Hfa] 90 MCG/PUFF HFA aerosol inhaler) INH PRN (14:29)
[2020-03-24] MEDS ORDERED: ALBUTEROL 2.5 MG/3 ML NEB RESP TX PRN (14:29)
[2020-03-24] MEDS ORDERED: CETIRIZINE 10 MG TABLET PO PRN (14:29)
[2020-03-24 15:23] LABS: Albumin 4.2 G/DL (3.4-5.0); Bilirubin,Total 0.6 MG/DL (0.2-1.0); Calcium 9.9 MG/DL (8.5-10.1); Osmolality,Calculated 260.9 MOS/KG (273-304); Total Protein 7.1 G/DL (6.4-8.3)
[2020-03-24 15:26] LABS: INR 1.1; PT Patient Result 11.5 SECS (9.8-11.9)
[2020-03-24 16:33] LABS: Basophils % 0.5 % (0.0-0.8); Eosinophils # 0.1 10*3/uL (0.0-0.87); Eosinophils % 0.6 % (0.00-10.9); Hematocrit 38.8 VOL% (35.7-47.0); Hemoglobin 13.7 GM/DL (12.0-16.0); Immature Granulocytes % 0.2 %; Immature Granulocytes Absolute 0.02 #; Lymphocytes # 2.2 10*3/uL (1.4-4.0); Lymphocytes % 24.8 % (21.3-54.2); Mean Corpuscular HGB Conc 35.3 GM/DL (32-36); Mean Platelet Volume 9.5 FL (9.6-12.0); Monocytes % 7.4 % (1.7-12.7); Neutrophils % 66.5 % (38.7-73.9); Platelet Count 200 T/CUMM (130-400); Red Blood Count 4.46 MC/CUMM (3.8-5.5); Red Cell Distribution Width 11.9 % (9.3-17.3); White Blood Count 8.9 T/CUMM (4-12)
[2020-03-24] MEDS ORDERED: HYOSCYAMINE 0.125 MG TABLET PO SCH (17:00)
[2020-03-25 05:35] LABS: Basophils % 0.7 % (0.0-0.8); Eosinophils # 0.2 10*3/uL (0.0-0.87); Eosinophils % 3.3 % (0.00-10.9); Hematocrit 34.9 VOL% (35.7-47.0); Lymphocytes % 50.2 % (21.3-54.2); Mean Corpuscular HGB Conc 34.4 GM/DL (32-36); Mean Corpuscular Volume 88.8 FL (87-102); Mean Platelet Volume 9.8 FL (9.6-12.0); Monocytes % 9.4 % (1.7-12.7); Neutrophils % 36.4 % (38.7-73.9); Platelet Count 180 T/CUMM (130-400); Red Blood Count 3.93 MC/CUMM (3.8-5.5); Red Cell Distribution Width 11.9 % (9.3-17.3); White Blood Count 6.1 T/CUMM (4-12)
[2020-03-25 05:56] LABS: Albumin 3.6 G/DL (3.4-5.0); Bilirubin,Total 0.6 MG/DL (0.2-1.0); Calcium 8.9 MG/DL (8.5-10.1); Osmolality,Calculated 269.4 MOS/KG (273-304); Total Protein 6.3 G/DL (6.4-8.3)
[2020-03-25 06:00] LABS: Atypical Lymphocytes Few; Eosinophils 4 % (0-10); Hypochromasia 1+; Lymphocytes 50 % (20-55); Microcytosis Slight; Platelet Estimate Adequate; Segmented Neutrophils 38 % (50-85); Total Cells Counted 100
[2020-03-25] MEDS: LEVOTHYROXINE 75 MCG TABLET PO SCH (06:10)
[2020-03-25] MEDS: INSULIN LISPRO 100 UNIT/ML SUBCUT SCH ×4 (08:07→22:26)
[2020-03-25] MEDS ORDERED: OLMESARTAN 20 MG TABLET PO SCH (09:00)
[2020-03-25] MEDS ORDERED: ISOSORBIDE MONONITRATE 30 MG TABLET PO SCH (09:00)
[2020-03-25] MEDS: HEPARIN DRIP 25,000 UNITS/500 ML PREMIX IV SCH (10:10)
[2020-03-25] MEDS: ROSUVASTATIN 20 MG TABLET PO SCH (12:04)
[2020-03-25] MEDS: SODIUM CHLORIDE 0.9% 1,000 ML IV SCH (14:38)
[2020-03-25] MEDS: INSULIN GLARGINE 100 UNIT/ML SUBCUT SCH (15:16)
[2020-03-25] MEDS: levETIRAcetam 250 MG TABLET PO SCH (22:00)
[2020-03-26] MEDS: HEPARIN DRIP 25,000 UNITS/500 ML PREMIX IV SCH (07:19)
[2020-03-26] MEDS: SODIUM CHLORIDE 0.9% 1,000 ML IV SCH (07:19)
[2020-03-26] MEDS: LEVOTHYROXINE 75 MCG TABLET PO SCH (08:07)
[2020-03-26] MEDS: DOCUSATE SODIUM 100 MG CAPSULE PO PRN (09:11)
[2020-03-26] MEDS: ROSUVASTATIN 20 MG TABLET PO SCH (09:11)
[2020-03-26] MEDS: INSULIN GLARGINE 100 UNIT/ML SUBCUT SCH (09:54)
[2020-03-26] MEDS: levETIRAcetam 250 MG TABLET PO SCH ×2 (09:54→21:23)
[2020-03-26] MEDS: INSULIN LISPRO 100 UNIT/ML SUBCUT SCH ×4 (10:01→21:24)
[2020-03-26] MEDS: METOPROLOL TARTRATE 25 MG TABLET PO SCH ×2 (13:26→21:23)
[2020-03-26] MEDS ORDERED: ASPIRIN EC 81 MG TABLET PO SCH (21:00)
[2020-03-26] MEDS: APIXABAN 2.5 MG TABLET PO SCH (21:23)
[2020-03-27] MEDS: SODIUM CHLORIDE 0.9% 1,000 ML IV SCH ×2 (03:10→13:17)
[2020-03-27] MEDS: LEVOTHYROXINE 75 MCG TABLET PO SCH (06:00)
[2020-03-27] MEDS ORDERED: METOPROLOL TARTRATE 25 MG TABLET PO ONE (06:05)
[2020-03-27] MEDS: ROSUVASTATIN 20 MG TABLET PO SCH (08:37)
[2020-03-27] MEDS: levETIRAcetam 250 MG TABLET PO SCH (08:37)
[2020-03-27] MEDS: DOCUSATE SODIUM 100 MG CAPSULE PO PRN (08:37)
[2020-03-27] MEDS: METOPROLOL TARTRATE 25 MG TABLET PO SCH (08:37)
[2020-03-27] MEDS: APIXABAN 2.5 MG TABLET PO SCH (08:38)
[2020-03-27] MEDS ORDERED: CLOPIDOGREL 75 MG TABLET PO SCH (09:00)
[2020-03-27] MEDS ORDERED: OLMESARTAN 20 MG TABLET PO SCH (09:30)
[2020-03-27] MEDS: INSULIN GLARGINE 100 UNIT/ML SUBCUT SCH (09:42)
[2020-03-27] MEDS ORDERED: guaiFENesin 200 MG/10 ML UDCUP PO PRN (10:07)
[2020-03-27] MEDS: INSULIN LISPRO 100 UNIT/ML SUBCUT SCH ×2 (11:17→13:18)
[2020-03-27] MEDS: ACETAMINOPHEN 325 MG TABLET PO PRN (11:26)
[2020-03-27 13:00] VITALS: BP 148/57
[2020-03-28] MEDS ORDERED: CLOPIDOGREL 75 MG TABLET PO SCH (09:00)
== END 2020-03-27 15:56 | disposition home health service (06) | DRG 101 ==
LOC: N.EDINP 20:00 → N.ED 20:00 → N.EDINP 22:51 → N.TELES 23:25
PROVIDERS: ADMIT Internal Medicine; ATTEND Internal Medicine